=== PATIENT | female | born 1965 | race Caucasian/White ===

== ENCOUNTER 2025-01-07 14:15 | Emergency (ER) | payer MEDICARE, SELFPAY ==
--- OUTSIDE RECORDS SUMMARY | 2011-03-24 07:00 | XMS_ITS | Continuity of Care Document ---
Author Organization [facility] Phys[facility] Address [address] [place] [address] Phone Care Team Providers Care Credit Risk Analyst Name Role Phone Hermelindo BRIDGES, Horace Unavailable Unavailable Procedures Procedure Date OFFICE/OUTPATIENT VISIT, NEW Advance Directives Directive Yes / No Effective Date File Name No Information Encounters Encounter Description Practice Location Reason(s) For Visit Diagnoses Date Provider Providers Copied on Encounter OFFICE/OUTPATI ENT VISIT, NEW [facility] , [address] [place], [address], [place] tel:[phone] [facility] PAIN IN OR AROUND EYEHEADACHE Hermelindo Vu. [address] [place] [address], [facility] [address], [place], [place], [id number], . tel:[phone] Referring Provider: Horace Singletary, [address] [place] [address] [address], [place], [address]. tel:[phone] Family History Family Member Type Diagnosis Age At Onset No Information Payers Payer name Insurance type Covered green party ID Authoriza tion(s) No Information Social History Type Description Quantity Date Captured Comments Sex Female Smoking Status No Information Chief Complaint And Reason For Visit No Information Reason For Referral Reason For Referral No Information History Of Present Illness Encounter Date Complaint History Of Prese nt Illness No Information Functional Status Date Functional Assessmen t No Information Instructions Date Instruction Additional Infor mation No Information Assessments Type Assessment Date No Information Patient Care Teams Name Effective Dates (start - stop) Status Members No Information
--- OUTSIDE RECORDS SUMMARY | 2024-11-29 11:30 | XMS_ITS | Encounter Summary ---
Author Organization [place] [address] Care Team Providers Care Automotive Design Drafter Name Role Phone Elie Warren MD [facility] Eileen Lee MD Primary Care Provider [phone] Reason for Visit * Reason Comments URI Encounter Details Date Type Department Care Team (Late st Contact Info) Description 11/29/2024 11:30 AM EDT Office Visit [facility] [address] [place] [facility] [place] [address] Eileen Quevedo MD [address] [place] [address] Acute bronchitis, unspecified organism (Primary Dx) Social History Tobacco Use Types Packs/Day Years Used Date Smoking Tobacco: Former Cigarettes 1 43.5 S tarted: 1982 Smokeless Tobacco: Never Tobacco Cessation:Counseling Given: Not Answered Alcohol Use Standard Drinks/Week Comments No 0 (1 standard drink = 0.6 oz pur e alcohol) PHQ-2 Answer Date Recorded PHQ-2 Total Score 0 09/29/2024 Comments No Sex and Gender Information Value Date Recorded Sex Assigned at Not on file Legal Sex Female 6:08 AM EDT Gender Identity Not on file Sexual Orientation Not on file documented as of this encounter Last Filed Vital Signs Vital Sign Reading Time Taken Comments Blood Pressure 118/68 11/29/2024 11:23 AM EDT Pulse 68 11/29/2024 11:23 AM EDT Temperature - - Respiratory Rate - - Oxygen Saturation 96% 11/29/2024 11:23 AM EDT Inhaled Oxygen Concentration - - Weight 62.1 kg (137 lb) 11/29/2024 11:23 AM EDT Height 162.6 cm (5' 4 ) 11/29/2024 11:23 AM EDT Body Mass Index 23.52 11/29/2024 11:23 AM EDT documented in this encounter Functional Status * Is the person deaf or does he/she have serious difficulty hearing? Answer Date of Assessment Author No 09/29/2024 1:53 PM EDT Nan Levy RMA * Is the person blind or does he/she have serious difficulty seeing even when wearing glasses? Answer Date of Assessment Author No 09/29/2024 1:53 PM EDT Nan Levy RMA * Does this person have serious difficulty walking or climbing stairs? Answer Date of Assessment Author No 09/29/2024 1:53 PM EDT Nan Levy RMA * Does this person have difficulty dressing or bathing? Answer Date of Assessment Author No 09/29/2024 1:53 PM EDT Nan Levy RMA * Because of a physical, mental or emotional condition, does this person have difficulty doing errands alone such as visiting a doctor's office or shopping? Answer Date of Assessment Author No 09/29/2024 1:53 PM EDT Nan Levy RMA documented as of this encounter Mental Status * Because of a physical, mental or emotional condition, does this person have serious difficulty concentrating, remembering or making decisions? Answer Entry Date Author No 09/29/2024 1:53 PM EDT Nan Levy RMA documented in this encounter Ordered Prescriptions Prescription Sig Dispense Quantity Refills Last Filled Start Date End Date benzonatate (TESSALON) 200 mg Oral CapsuleIndication s:Acute bronchitis, unspecified organism Take 1 Capsule by mouth 3 times daily as needed for Cough for up to 10 days. 30 Capsule 11/29/2024 5 methylPREDNISolon e (MEDROL DOSPACK) 4 mg Oral Tablets, Dose PackIndications:A cute bronchitis, unspecified organism See package instructions 21 Tablet 11/29/2024 5 documented in this encounter Progress Notes * Eileen Quevedo MD - 11/29/2024 11:30 AM EDT Vitals: 11/29/24 1123 BP: 118/68 Pulse: 68 SpO2: 96% Weight: 137 lb (62.1 kg) Height: 5' 4 (1.626 m) Body mass index is 23.52 kg/m??. SUBJECTIVE: Chief Complaint Patient presents with URI HPI: URI/Sinus symptoms: complains of sore throat, dry cough, productive cough, and myalgias for 4 days. Associated symptoms include fatigue. Symptom severity is described as Moderate and are worsening. What treatments have you tried at home? Nyquil flu and cold Are home treatments impacting your symptoms at all? Very little. Do you get recurrent or seasonal symptoms multiple times per year? no Do you have any history of lung disease, asthma, or recurrent allergies? no The Patient does not smoke cigarettes. PT's daughter was sixk and diagnosed with bronchitis. Her also diagnosed with bronchitis. Review of Systems Constitutional: Positive for fatigue. Negative for fever. HENT: Negative for congestion, rhinorrhea and sinus pressure. Respiratory: Positive for cough and chest tightness. Negative for shortness of breath. Cardiovascular: Negative for chest pain. Gastrointestinal: Negative for abdominal pain, constipation, diarrhea, nausea and vomiting. Endocrine: Negative for polydipsia, polyphagia and polyuria. Genitourinary: Negative for dysuria. Musculoskeletal: Positive for myalgias. Negative for back pain. Skin: Negative for rash. Neurological: Negative for seizures and headaches. Psychiatric/Behavioral: Negative for sleep disturbance. OBJECTIVE: Physical Exam Constitutional: General: She is not in acute distress. Appearance: She is well-developed. HENT: Head: Normocephalic and atraumatic. Right Ear: Tympanic membrane normal. Left Ear: Tympanic membrane normal. Mouth/Throat: Pharynx: No oropharyngeal exudate or posterior oropharyngeal erythema. Eyes: Conjunctiva/sclera: Conjunctivae normal. Pupils: Pupils are equal, round, and reactive to light. Cardiovascular: Rate and Rhythm: Normal rate and regular rhythm. Heart sounds: Normal heart sounds. No murmur heard. Pulmonary: Effort: Pulmonary effort is normal. Breath sounds: Normal breath sounds. No wheezing. Musculoskeletal: General: Normal range of motion. Cervical back: Normal range of motion. Skin: General: Skin is warm and dry. Findings: No rash. Neurological: Mental Status: She is alert. Cranial Nerves: No cranial nerve deficit. Psychiatric: Behavior: Behavior normal. Assessment & Plan Acute bronchitis, unspecified organism Orders: methylPREDNISolone (MEDROL DOSPACK) 4 mg Oral Tablets, Dose Pack; See package instructions benzonatate (TESSALON) 200 mg Oral Capsule; Take 1 Capsule by mouth 3 times daily as needed for Cough for up to 10 days. documented in this encounter Miscellaneous Notes * Addendum Note - Nan Levy RMA - 11/29/2024 11:30 AM EDTAddended by: NAN LEVY on: 11/29/2024 01:28 PM Modules accepted: Orders documented in this encounter Plan of Treatment Not on file documented as of this encounter Goals Goal Patient Goal Type Associated Problems Recent Progress Patient-Stated? Author Maintain a healthy diet, exercise regularly and maintain an ideal body weight General No Nan Levy RMA Stay Tobacco Free Lifestyle No Nan Levy RMA documented as of this encounter Procedures Procedure Name Priority Date/Time Associated Diagnosis Comments POCT CEPHEID SARS COV-2 RNA + FLU A/B + RSV Routine 11/29/2024 1:27 PM EDT Acute bronchitis, unspecified organism documented in this encounter Results * POCT CEPHEID SARS COV-2 RNA + FLU A/B + RSV (11/29/2024 1:27 PM EDT) SARS COV-2 RNA Negative Negative, Invalid [facility] INFLUENZA A Negative Negative, Invalid SEP OFFICE INFLUENZA B Negative Negative, Invalid SEP OFFICE RSV Negative Negative, Invalid SEP OFFICE Lot Number SEP OFFICE Expiration Date SEP OFFICE SeriAl # SEP OFFICE Control Line Yes YES/NO SEP [facility]ICE 11/29/2024 1:27 PM EDT us Eileen Quevedo MD POINT OF CARE TEST ORDERABLES Final Result [facility] documented in this encounter Visit Diagnoses Diagnosis Acute bronchitis, unspecified organism- Primary documented in this encounter Care Teams Automotive Design Drafter Relationship Specialty Start Date End Date Eileen Quevedo MD [address] [place] [address] PCP - General Family Medicine 09/02/18 Elie Warren MD 10/17/16 documented as of this encounter
--- OUTSIDE RECORDS SUMMARY | 2024-12-08 09:15 | XMS_ITS | Encounter Summary ---
Author Organization [place] [address] Care Team Providers Care Resource Development Manager Name Role Phone Elie Warren MD, Ashley N MD Primary Care Provider [phone] Reason for Visit * Reason Comments Cough Encounter Details Date Type Department Care Team (Late st Contact Info) Description 12/08/2024 9:15 AM EDT Office Visit [facility] [address] [place] [address] Eugenia Raygozaah Katerina, IP ATTORNEY [address] [place] [address] Chest pain at rest (Primary Dx); Acute cough Social History Tobacco Use Types Packs/Day Years Used Date Smoking Tobacco: Former Cigarettes 1 43.5 S tarted: 1982 Smokeless Tobacco: Never Alcohol Use Standard Drinks/Week Comments No 0 [...] Sign Reading Time Taken Comments Blood Pressure 112/70 12/08/2024 9:13 AM EDT Pulse 70 12/08/2024 9:13 AM EDT Temperature 36.8 C (98.2 F) 12/08/2024 9:13 AM EDT Respiratory Rate - - Oxygen Saturation 98% 12/08/2024 9:13 AM EDT Inhaled Oxygen Concentration - - Weight 61.7 kg (136 lb) 12/08/2024 9:13 AM EDT Height 162.6 cm (5' 4 ) 12/08/2024 9:13 AM EDT Body Mass Index 23.34 12/08/2024 9:13 AM EDT documented in this encounter Functional Status * Is the person deaf or does he/she have serious difficulty hearing? Answer Date of Assessment Author No 09/29/2024 1:53 PM EDT Adelaida Clark RMA * Is the person blind or does he/she have serious difficulty seeing even when wearing glasses? Answer Date of Assessment Author No 09/29/2024 1:53 PM EDT Adelaida Clark RMA * Does this person have serious difficulty walking or climbing stairs? Answer Date of Assessment Author No 09/29/2024 1:53 PM EDT Adelaida Clark RMA * Does this person have difficulty dressing or bathing? Answer Date of Assessment Author No 09/29/2024 1:53 PM EDT Adelaida Clark RMA * Because of a physical, mental or emotional condition, does this person have difficulty doing errands alone such as visiting a doctor's office or shopping? Answer Date of Assessment Author No 09/29/2024 1:53 PM EDT Adelaida Clark RMA documented as of this encounter Mental Status * Because of a physical, mental or emotional condition, does this person have serious difficulty concentrating, remembering or making decisions? Answer Entry Date Author No 09/29/2024 1:53 PM EDT Adelaida Clark RMA documented in this encounter Ordered Prescriptions Prescription Sig Dispense Quantity Refills Last Filled Start Date End Date albuterol (PROVENTIL HFA;VENTOLIN HFA) 90 mcg/actuation Inhl HFA Aerosol Inhaler Inhale 2 Puffs into the lungs every 4 hours as needed for Wheezing. 1 Each 2 12/08/2024 documented in this encounter Progress Notes * Jazmine Raygoza APRN - 12/08/2024 9:15 AM EDT Vitals: 12/08/24 0913 BP: 112/70 Pulse: 70 Temp: 98.2 ??F (36.8 ??C) TempSrc: Temporal SpO2: 98% Weight: 136 lb (61.7 kg) Height: 5' 4 (1.626 m) Body mass index is 23.34 kg/m??. SUBJECTIVE: Chief Complaint Patient presents with ??? Cough HPI: Pt c/o cough, SOB, chest pressure x 2 weeks was seen last week and was prescribed a steroid pack with no improvement. Does not use an inhaler. Review of Systems Constitutional: Negative for fever. HENT: Positive for rhinorrhea. Negative for sinus pressure and sinus pain. Respiratory: Positive for cough, chest tightness and shortness of breath. Cardiovascular: Negative for chest pain. OBJECTIVE: Physical Exam Vitals and nursing note reviewed. Constitutional: Appearance: Normal appearance. HENT: Mouth/Throat: Mouth: Mucous membranes are moist. Pharynx: Oropharynx is clear. Cardiovascular: Rate and Rhythm: Normal rate and regular rhythm. Pulses: Normal pulses. Heart sounds: Normal heart sounds. Pulmonary: Effort: Pulmonary effort is normal. Breath sounds: Normal breath sounds. Skin: General: Skin is warm and dry. Neurological: General: No focal deficit present. Mental Status: She is alert. Assessment & Plan Chest pain at rest Orders: ??? POCT EKG ??? XR CHEST PA AND LATERAL; Future Acute cough Orders: ??? XR CHEST PA AND LATERAL; Future Phicq-yg-kujl EKG and chest x-ray reviewed this visit no abnormality seen in EKG, no ST elevation or depression noted. Chest x-ray was clear of pneumonia. Patient will start allergy medicine and inhaler as needed for wheezing and chest tightness. Luak-jgb-axymyrg Flonase as directed. Will follow-up as needed documented in this encounter Plan of Treatment Not on file documented as of this encounter Goals Goal Patient Goal Type Associated Problems Recent Progress Patient-Stated? Author Maintain a healthy diet, exercise regularly and maintain an ideal body weight General No Adelaida Clark RMA Stay Tobacco Free Lifestyle No [place], Adelaida De Guzman, RMA documented as of this encounter Procedures Procedure Name Priority Date/Time Associated Diagnosis Comments POCT EKG Routine 12/08/2024 9:32 AM EDT Chest pain at rest documented in this encounter Results * XR CHEST PA AND LATERAL (12/08/2024 9:53 AM EDT) Anatomical Region Laterality Modality Chest Radiographic Cortney ging 12/08/2024 9:53 AM EDT Impressions 12/08/2024 10:05 AM EDT No acute intrathoracic process. - Note: Radiology results need to be interpreted within a comprehensive clinical context. If you have questions about the radiology report, please contact the office of the ordering clinician. Narrative 12/08/2024 10:05 AM EDT PA AND LATERAL CHEST X-RAY, 12/08/2024 9:53 AM CLINICAL HISTORY: R07.9-Chest pain, [id number]-25-CM R05.1-Acute nsoon-CIF-43-CM COMPARISON: 02/12/2023. PROCEDURE COMMENTS: Frontal and lateral views of the chest. FINDINGS: Stable radiographic appearance of the heart and pulmonary vascular structures. The lungs are clear. No pleural effusions Procedure Note Te Painting DO - 12/08/2024 PA AND LATERAL CHEST X-RAY, 12/08/2024 9:53 AM CLINICAL HISTORY: R07.9-Chest pain, [id number]-ZCB-45-CM R05.1-Acute ekhnm-MSR-97-CM COMPARISON: 02/12/2023. PROCEDURE COMMENTS: Frontal and lateral views of the chest. FINDINGS: Stable radiographic appearance of the heart and pulmonary vascularstructures. The lungs are clear. No pleural effusions IMPRESSION: No acute intrathoracic process. - Note: Radiology results need to be interpreted within a comprehensiveclinical context. If you have questions about the radiology report, please contactthe office of the ordering clinician. Jazmine Raygoza APRN IMG DIAGNOSTIC IMAGING O RDERABLES Final Result * POCT EKG (12/08/2024 9:32 AM EDT) 12/08/2024 9:32 AM EDT Jazmine Bogres Raygoza IP ATTORNEY POINT OF CARE CARDIOLOGY Final Result [facility] documented in this encounter Visit Diagnoses Diagnosis Chest pain at rest- Primary Chest pain, unspecified Acute cough Chest pain at rest Chest pain, unspecified Acute cough documented in this encounter Discontinued Medications Medication Sig Discontinue Reason Start Date End Da te methylPREDNISolone (MEDROL DOSPACK) 4 mg Oral Tablets, Dose PackIndications:Acute bronchitis, unspecified organism See package instructions DELETE-Therapy completed 11/29/2024 12/08/2024 documented as of this encounter Care Teams Resource Development Manager Relationship Specialty Start Date End Date Eileen Quevedo MD [address] [place] [address] PCP - General Family Medicine 09/02/18 Elie Warren MD 10/17/16 documented as of this encounter
--- OUTSIDE RECORDS SUMMARY | 2024-12-08 09:49 | XMS_ITS | Encounter Summary ---
Author Organization [place] [address] Care Team Providers Care Clinical Lab Assistant Name Role Phone Elie Warren MD, Ashley N MD Primary Care Provider [phone] Encounter Details Date Type Department Care Team (Late st Contact Info) Description 12/08/2024 9:49 AM EDT - 12/08/2024 11:59 PM EDT Hospital Encounter [facility] [address] [place] [address] Jazmine Raygoza, HOT DIP GALVANIZER [address] [place] [address] Chest pain at rest; Acute cough Discharge Disposition: Home or Self Care Social History Tobacco Use Types Packs/Day Years [...] on file documented as of this encounter Functional Status * Is the person deaf or does he/she have serious difficulty hearing? Answer Date of Assessment Author No 09/29/2024 1:53 PM EDT Adelaida Clark RMA * Is the person blind or does he/she have serious difficulty seeing even when wearing glasses? Answer Date of Assessment Author No 09/29/2024 1:53 PM EDT Amber TANVI Ferguson * Does this person have serious difficulty [...] Adelaida Clark RMA documented in this encounter Medications at Time of Discharge albuterol (PROVENTIL HFA;VENTOLIN HFA) 90 mcg/actuation Inhl HFA Aerosol Inhaler Inhale 2 Puffs into the lungs every 4 hours as needed for Wheezing. 1 Each 2 12/08/2024 buPROPion (WELLBUTRIN SR) 150 mg Oral tablet sustained-release 12 hrIndications:Cigare tte smoker TAKE 1 TABLET BY MOUTH TWICE A DAY 200 Tablet 1 11/22/2024 busPIRone (BUSPAR) 7.5 mg Oral TabletIndications:Ot her depression Take 2 Tablets by mouth 2 times daily. 120 Tablet 11 09/29/2024 cyclobenzaprine (FLEXERIL) 10 mg Oral TabletIndications:Oc cipital neuralgia of right side Take 1 Tablet by mouth every 8 hours as needed. for muscle spasm 90 Tablet 07/03/2023 cyclobenzaprine (FLEXERIL) 10 mg Oral Tablet TAKE 1 TABLET 3 TIMES A DAY BY ORAL ROUTE FOR 30 DAYS. 11/26/2022 DULoxetine (CYMBALTA) 60 mg Oral Capsule, Delayed Release(E.C.)Indicat ions:Other depression Take 1 Capsule by mouth daily. 100 Capsule 1 09/29/2024 metoprolol succinate (TOPROL-XL) 25 mg Oral Tablet Sustained Release 24 hrIndications:Essent ial hypertension TAKE 1 TABLET BY MOUTH EVERY DAY 90 Tablet 1 05/10/2024 oxyCODONE 10 mg Oral Tablet Take 10 mg by mouth every 4 hours. oxyCODONE-acetaminop hen (PERCOCET) 10-325 mg Oral TabletIndications:Ch ronic pain with drug dependence (HCC) Take 1 Tablet by mouth every 6 hours as needed for Acute Pain (R52) or Chronic Pain (G89.29). 90 Tablet 07/02/2021 rosuvastatin (CRESTOR) 10 mg Oral TabletIndications:Hy perlipidemia, unspecified hyperlipidemia type Take 1 Tablet by mouth nightly. 90 Tablet 3 09/29/2024 sertraline (ZOLOFT) 100 mg Oral TabletIndications:Ot her depression Take 1 Tablet by mouth daily. 90 Tablet 3 09/29/2024 traZODone (DESYREL) 50 mg Oral TabletIndications:In somnia, persistent Take 1 Tablet by mouth nightly. 30 Tablet 2 09/29/2024 benzonatate (TESSALON) 200 mg Oral CapsuleIndications:A cute bronchitis, unspecified organism Take 1 Capsule by mouth 3 times daily as needed for Cough for up to 10 days. 30 Capsule 11/29/2024 5 documented as of this encounter Discharge Disposition Disposition Code Departure Means Destination Home or Self Care documented in this encounter Plan of Treatment Not on file documented as of this encounter Goals Goal Patient Goal Type Associated Problems Recent Progress Patient-Stated? Author Maintain a healthy diet, exercise regularly and maintain an ideal body weight General Adelaida Hurd RMA Stay Tobacco Free Lifestyle Adelaida Hurd RMA documented as of this encounter Procedures Procedure Name Priority Date/Time Associated Diagnosis Comments XR CHEST PA AND LATERAL Routine 12/08/2024 9:53 AM EDT Chest pain at rest Acute cough documented in this encounter Results * XR [...] 12/08/2024 9:53 AM CLINICAL HISTORY: R07.9-Chest pain, [id number]-36-CM R05.1-Acute soxeu-TJO-31-CM COMPARISON: 02/12/2023. PROCEDURE COMMENTS: Frontal and lateral views of the chest. FINDINGS: Stable radiographic appearance of the heart and pulmonary vascular structures. The lungs are clear. No pleural effusions Procedure Note Te Painting, - 12/08/2024 PA AND LATERAL CHEST X-RAY, 12/08/2024 9:53 AM CLINICAL HISTORY: R07.9-Chest pain, [id number]-LOY-06-CM R05.1-Acute ogxqi-FUL-27-CM COMPARISON: 02/12/2023. PROCEDURE COMMENTS: Frontal and lateral [...] IMG DIAGNOSTIC IMAGING O RDERABLES Final Result documented in this encounter Visit Diagnoses Diagnosis Chest pain at rest Chest pain, unspecified Acute cough documented in this encounter Care Teams Clinical Lab Assistant Relationship Specialty Start Date End Date Eileen Quevedo MD [address] [place] [address] [facility] PCP - General Family Medicine 09/02/18 Elie Warren MD 10/17/16 documented as of this encounter
[2025-01-07 14:24] VITALS: BP 126/68; PULSE 75; RESP 18; TEMP 36.6; O2SAT 99; BMI 23.6
[2025-01-07 14:28] VITALS: BP 126/68; PULSE 75; RESP 18; TEMP 36.4; O2SAT 98
--- NOTE | 2025-01-07 14:28 | XR_ITS ---
PROCEDURE INFORMATION: Exam: XR Left Hand Exam date and time: 01/07/2025 2:24 PM Age: 59 years old Clinical indication: Pain; Hand; Left; Additional info: Injury to pinky/side hand TECHNIQUE: Imaging protocol: Radiologic exam of the left hand. Views: 1 or 2 views. COMPARISON: No relevant prior studies available. FINDINGS: Bones/joints: Acute nondisplaced Spiral oblique fracture in the proximal phalanx of the little finger. Soft tissues: Soft tissue swelling of the little finger IMPRESSION: Acute nondisplaced Spiral oblique fracture in the proximal phalanx of the little finger.
--- OUTSIDE RECORDS SUMMARY | 2025-01-07 14:38 | XMS_ITS | Clinical Summary ---
Author Organization [facility] Address [address] [id number] Phone Care Team Providers Care Strategic Sourcing Specialist Name Role Phone Tyler ZULETA, Rick Sevilla [phone] Conditions or Problems Problem Name Problem Code Onset Date Status Entry Date Provider Comment Standard Description Annotate CERVICAL RADICULOPATHY 64995787 (SNOMED CT) 08/08 Active 08/08 Kajal Wharton MA Cervical radiculopathy THORACIC BACK PAIN [id number] (SNOMED CT) 08/08 Active 08/08 Kajal Wharton MA Thoracic back pain NECK PAIN 14538178 (SNOMED CT) 08/08 Active 08/08 Kajal Wharton MA Neck pain Medications Medication Instructions Start Date Stop Date Generic Name [facility] Provider CYCLOBENZAPRINE HCL 10 MG TABS Take 1 tablet by mouth three times a day for pain for pain and spasms cyclobenzaprine [id number] Rick Scott NP BUPROPION HCL ER (SMOKING DET) 150 MG [id number] 02/10 bupropion hcl (smoking deter) [id number] Martha Leung KATYA METOPROLOL SUCCINATE ER 25 MG [id number] 02/10 metoprolol succinate [id number] Martha Dodds KATYA BUSPIRONE HCL 7.5 MG TABS 02/10 buspirone [id number] Martha Leung KATYA OXYCODONE HCL 10 MG TABS 02/10 oxycodone [id number] Martha Leung KATYA PREGABALIN 50 MG CAPS 02/10 pregabalin [id number] Mrathabrittany Leung KATYA ROSUVASTATIN CALCIUM 10 MG TABS rosuvastatin 58774800113 Dain Leung MA DULOXETINE HCL 60 MG CPEP duloxetine 09362819613 Martha Leung MA BUSPIRONE HCL 7.5 MG TABS buspirone 79242300124 Martha Leung MA TRAZODONE HCL 50 MG TABS trazodone 08532031990 Martha Leung MA METOPROLOL SUCCINATE ER 25 MG [id number] metoprolol succinate [id number] Martha Leung MA OXYCODONE-ACETAMIN OPHEN 10-325 MG TABS oxycodone-acetam i nophen 48643019490 Martha Leung MA SERTRALINE HCL 100 MG TABS sertraline [id number] Martha Leung MA BUPROPION HCL ER (SR) 150 MG [id number] bupropion hcl 67964564080 Martha Leung MA BUPROPION HCL ER (SMOKING DET) 150 MG [id number] 02/10 bupropion hcl (smoking deter) [id number] Kajal Wharton KATYA BUSPIRONE HCL 7.5 MG TABS 02/10 buspirone 48573060833 Kajal Wharton MA METOPROLOL SUCCINATE ER 25 MG [id number] 02/10 metoprolol succinate 78452866594 Kajal Wharton MA OXYCODONE HCL 10 MG TABS 02/10 oxycodone 09934149961 Kajal Wharton MA PREGABALIN 50 MG CAPS 02/10 pregabalin [id number] Kajal Wharton MA Medications Administered No information available. Allergies, Adverse Reactions, Alerts Observed No Known Drug Allergies at Results No information available. Plan of Care Type Date Detail Pending order PT Order Pending order MRI Cervical wit hout Contrast Pending order MRI Thoracic wit hout Contrast Pending order MRI Cervical wit hout Contrast Pending order MRI Thoracic wit hout Contrast Pending order PT Order Procedures Code Procedure Name Date Entry Date [facility]-[id number] Tobacco Cessation Counseling Performed 2 Vital Signs Date Name Value Unit Description BMI (Body Mass Index) 22.31 kg/m2 Bod y Mass Index (Ratio) Height 64 [in_us] height E&M Weight Measured 130 [lb_av] weight E& M Weight Measured 130 [lb_av] weight E& M Immunizations No information available. Advance Directives No information available.
--- OUTSIDE RECORDS SUMMARY | 2025-01-07 14:39 | XMS_ITS | Clinical Summary ---
Author Organization [facility] Address [address] [place] [address] Care Team Providers Care Brace Maker Name Role Phone Real Baltazar MD Primary Care Provider [phone] Allergies No known active allergies Medications traZODone (DESYREL) 50 MG TABS Take 50 mg by mouth nightly. 4 Active sertraline (ZOLOFT) 100 MG TABS Take 100 mg by mouth daily. 4 Active rosuvastatin (CRESTOR) 10 MG TABS Take 10 mg by mouth nightly. 4 Active oxyCODONE HCl (ROXICODONE) 10 MG TABS Take 10 mg by mouth every 4 (four) hours. Active metoprolol succinate (TOPROL-XL) 25 mg extended-releas e tablet Take 25 mg by mouth daily. 4 Active DULoxetine (CYMBALTA) 60 MG CPEP Take 60 mg by mouth daily. 4 Active busPIRone (BUSPAR) 7.5 mg tablet Take 15 mg by mouth 2 (two) times daily. 4 Active buPROPion ER (WELLBUTRIN SR) 150 MG TB12 Take 150 mg by mouth 2 (two) times daily. 4 Active Unclassified (UNABLE TO FIND) daily. NAD supplement Active oxyCODONE-aceta minophen (PERCOCET) 10-325 mg TABS Take 1 tablet every 8 hours by oral route for 30 days. 5 Active Social History Tobacco Use Types Packs/Day Years Used Date Smoking Tobacco: Former Cigarettes Q uit: 06/11/2024 Smokeless Tobacco: Never Tobacco Cessation:Counseling Given: Not Answered Alcohol Use Standard Drinks/Week Comments Not Currently 0 (1 standard drink = 0.6 oz pur e alcohol) very rare Comments No Sex and Gender Information Value Date Recorded Sex Assigned at Not on file Legal Sex Female 11:56 AM EDT Gender Identity Female 08/05/2024 2:25 PM EST Sexual Orientation Not on file Last Filed Vital Signs Vital Sign Reading Time Taken Comments Blood Pressure 115/61 08/12/2024 1:50 PM EST Pulse 78 08/12/2024 1:50 PM EST Temperature 36.9 C (98.5 F) 08/12/2024 1:50 PM EST Respiratory Rate 18 08/12/2024 1:50 PM EST Oxygen Saturation 94% 08/12/2024 1:50 PM EST Inhaled Oxygen Concentration - - Weight 59 kg (130 lb) 08/12/2024 9:18 AM EST Height 162.6 cm (5' 4 ) 08/05/2024 2:08 PM EST Body Mass Index 22.31 08/05/2024 2:08 PM EST Plan of Treatment Health Maintenance Due Date Last Done Comments Hepatitis C Screening 1964 DTap,Tdap,and Td (1 - Tdap) 1975 Pap Screening 1985 Mammogram Screening 2004 Colonoscopy 2009 Pneumococcal 50+ (1 of 1 - PCV) 2014 Shingrix (#1) 2014 Influenza Vaccine (Season Ended) 2025 RSV Vaccine (60+ or ) (1 - 1-dose 75+ series) 2039 HPV Aged Out No longer eligi ble based on patient's age to complete this topic Meningococcal conjugate carlota nt 4 (MCV4) Aged Out No longer eligible b ased on patient's age to complete this topic RSV Immunization (<20 months) Aged Out No longer eligible based on patient's age to complete this topic Medical Devices Implanted Type Area Abattoir Manager Device Identifier Shelf Expiration Date Model / Serial / Lot Breast Bilateral: Breast Screws Left: Leg Breast Implant Implanted:Qty: 1 on 08/12/2024 by Real Baltazar MD at [facility] Left: Breast ALLERGAN 01/16/2027 REF# [id number] / [id number] / Description: brought impla nt Breast Implant Implanted:Qty: 1 on 08/12/2024 by Real Baltazar MD at [facility] Right: Breast ALLERGAN 05/17/2027 [id number] / [id number] / Description: brought impla nt Explanted Type Area Abattoir Manager Device Identifier Shelf Expiration Date Model / Serial / Lot Breast Explant Explanted:Qty: 1 on 08/12/2024 at [facility] Left: Breast [employer] STYLE 68MP / / [id number] Breast Explant Explanted:Qty: 1 on 08/12/2024 at [facility] Right: Breast [employer] STYLE 68MP / / [id number] Care Teams Brace Maker Relationship Specialty Start Date End Date Real Baltazar MD PCP - General Plastic Surgery 08/08/24
--- OUTSIDE RECORDS SUMMARY | 2025-01-07 14:39 | XMS_ITS | Encounter Summary ---
Author Organization [place] [address] Care Team Providers Care Car Pusher Name Role Phone Elie Warren MD [facility] Eileen Lee MD Primary Care Provider [phone] Reason for Visit * Reason Comments Medication Refill Encounter Details Date Type Department Care Team (Late st Contact Info) Description 11/20/2024 [facility]ill [facility] [address] [facility] [place] [id number] Eileen Quevedo MD [address] [place] [address] Medication Refill Social History Tobacco Use Types Packs/Day Years [...] Assessment Author No 09/29/2024 1:53 PM EDT WeAdelaida jean RMA * Does this person have serious difficulty walking or climbing stairs? Answer Date of Assessment Author No 09/29/2024 1:53 PM EDT Amber TANVI Ferguson * Does this person have difficulty dressing or bathing? Answer Date of Assessment Author No 09/29/2024 1:53 PM EDT Amber TANVI Ferguson * Because of a physical, mental or emotional condition, does this person have difficulty doing errands alone such as visiting a doctor's office or shopping? Answer Date of Assessment Author No 09/29/2024 1:53 PM EDT Amber TANVI Ferguson documented as of this encounter Mental Status * Because of a physical, mental or emotional condition, does this person have serious difficulty concentrating, remembering or making decisions? Answer Entry Date Author No 09/29/2024 1:53 PM EDT Adelaida Clark RMA documented in this encounter Ordered Prescriptions Prescription Sig Dispense Quantity Refills Last Filled Start Date End Date buPROPion (WELLBUTRIN SR) 150 mg Oral tablet sustained-release 12 hrIndications:Cigar ette smoker TAKE 1 TABLET BY MOUTH TWICE A DAY 200 Tablet 1 11/22/2024 documented in this encounter Miscellaneous Notes * Telephone Encounter - Marlena Metzger CPhT - 11/22/2024 11:51 AM EDT Bupropion - Future Visit: N/A Last Assessed Visit: 09/29/24 Follow-Up Date: 04/01/25 All protocols passed. Refills approved and sent to requesting pharmacy. [facility]. documented in this encounter Plan of Treatment Not on file documented as of this encounter Goals Goal Patient Goal Type Associated Problems Recent Progress Patient-Stated? Author Maintain a healthy diet, exercise regularly and maintain an ideal body weight General No Adelaida Clark RMA Stay Tobacco Free Lifestyle No Adelaida Clark RMA documented as of this encounter Visit Diagnoses Diagnosis Cigarette smoker Tobacco use disorder documented in this encounter Discontinued Medications Medication Sig Discontinue Reason Start Date End Da te buPROPion (WELLBUTRIN SR) 150 mg Oral tablet sustained-release 12 hrIndications:Cigarette smoker Take 1 Tablet by mouth 2 times daily. 09/29/2024 11/22/2024 documented as of this encounter Care Teams Car Pusher Relationship Specialty Start Date End Date Eileen Quevedo MD [address] [place] [address] PCP - General Family Medicine 09/02/18 Elie Warren MD 10/17/16 documented as of this encounter
--- OUTSIDE RECORDS SUMMARY | 2025-01-07 14:39 | XMS_ITS | Clinical Summary ---
Author Organization [facility] Address [address] [place] [address] Phone Care Team Providers Care Seafood Clerk Name Role Phone Elie Warren MD [facility] [place] Eileen Rey MD Primary Care Provider [phone] Allergies No known active allergies Medications * This document contains information received from the source organization and may not represent a complete record from that organization. oxyCODONE 10 mg Oral Tablet Take 10 mg by mouth every 4 hours. Active oxyCODONE-acetamino phen (PERCOCET) 10-325 mg Oral TabletIndications:C hronic pain with drug dependence (HCC) Take 1 Tablet by mouth every 6 hours as needed for Acute Pain (R52) or Chronic Pain (G89.29). 90 Tablet 1 Active cyclobenzaprine (FLEXERIL) 10 mg Oral Tablet TAKE 1 TABLET 3 TIMES A DAY BY ORAL ROUTE FOR 30 DAYS. 3 Active cyclobenzaprine (FLEXERIL) 10 mg Oral TabletIndications:O ccipital neuralgia of right side Take 1 Tablet by mouth every 8 hours as needed. for muscle spasm 90 Tablet 3 Active metoprolol succinate (TOPROL-XL) 25 mg Oral Tablet Sustained Release 24 hrIndications:Essen tial hypertension TAKE 1 TABLET BY MOUTH EVERY DAY 90 Tablet 1 4 Active rosuvastatin (CRESTOR) 10 mg Oral TabletIndications:H yperlipidemia, unspecified hyperlipidemia type Take 1 Tablet by mouth nightly. 90 Tablet 3 5 Active sertraline (ZOLOFT) 100 mg Oral TabletIndications:O ther depression Take 1 Tablet by mouth daily. 90 Tablet 3 5 Active traZODone (DESYREL) 50 mg Oral TabletIndications:I nsomnia, persistent Take 1 Tablet by mouth nightly. 30 Tablet 2 5 Active DULoxetine (CYMBALTA) 60 mg Oral Capsule, Delayed Release(E.C.)Indica tions:Other depression Take 1 Capsule by mouth daily. 100 Capsule 1 5 Active busPIRone (BUSPAR) 7.5 mg Oral TabletIndications:O ther depression Take 2 Tablets by mouth 2 times daily. 120 Tablet 11 5 Active buPROPion (WELLBUTRIN SR) 150 mg Oral tablet sustained-release 12 hrIndications:Cigar ette smoker TAKE 1 TABLET BY MOUTH TWICE A DAY 200 Tablet 1 5 Active albuterol (PROVENTIL HFA;VENTOLIN HFA) 90 mcg/actuation Inhl HFA Aerosol Inhaler Inhale 2 Puffs into the lungs every 4 hours as needed for Wheezing. 1 Each 2 5 Active benzonatate (TESSALON) 200 mg Oral CapsuleIndications: Acute bronchitis, unspecified organism Take 1 Capsule by mouth 3 times daily as needed for Cough for up to 10 days. 30 Capsule 5 12/10/19 25 Active Problems Patient Care Coordination No te Formatting of this note migh t be different from the original. LINDA as expected 07/01/21 [id number] Care gap audit completed by Jazmine Hernandez RN on 09/03/2022. Problem Noted Date Diagnosed Date Screening for colon cancer 01/24/2021 Overview (01/24/2021): Added automatically from request for surgery [id number] Positive colorectal cancer screening using Colog uard test 01/24/2021 Overview (01/24/2021): Added automatically from request for surgery [id number] Depression 09/02/2018 Assessment & Plan (09/29/2024 2:30 PM EDT): Goal: achieve mental health wellness where ADLs, family, social and work relationships are optimal Depression Screen Score: PHQ-2 Total Score: 0 PHQ-9 Total Score: 0 Addressed: - Current stressors contributing to sx explored and discussed Compliance: - compliant with medications Advice: - remain compliant with follow up and medications Medication Management: - medication management decisions took place at today's visit (see orders) - responding as expected Orders: sertraline (ZOLOFT) 100 mg Oral Tablet; Take 1 Tablet by mouth daily. DULoxetine (CYMBALTA) 60 mg Oral Capsule, Delayed Release(E.C.); Take 1 Capsule by mouth daily. busPIRone (BUSPAR) 7.5 mg Oral Tablet; Take 2 Tablets by mouth 2 times daily. Insomnia, persistent 09/02/2018 Assessment & Plan (09/29/2024 2:30 PM EDT): Orders: traZODone (DESYREL) 50 mg Oral Tablet; Take 1 Tablet by mouth nightly. Encounters Date Type Department Care Team Description 12/08/2024 9:49 AM EDT - 12/08/2024 11:59 PM EDT Hospital Encounter [facility] [address] [address] Jazmine Raygoza APRN Chest pain at rest; Acute cough Discharge Disposition: Home or Self Care 12/08/2024 9:15 AM EDT Office Visit [facility] [address] [place] [phone] Jazmine Raygoza APRN Chest pain at rest (Primary Dx); Acute cough 12/08/2024 Results Follow-Up [facility] [address] [place] [phone] Jazmine Raygoza APRN XR CHEST PA AND LATERAL 11/29/2024 11:30 AM EDT Office Visit [facility] [address] [place] [phone] Eileen Quevedo MD Acute bronchitis, unspecified organism (Primary Dx) 11/20/2024 Refill [facility] [address] [place] [address] Eileen Quevedo MD Medication Refill 11/17/2024 Patient Outreach [facility] [address] [place] [address] Eileen Quevedo MD Central Patient Navigator Outreach (Mammo) 10/25/2024 10:12 AM EDT - 10/25/2024 11:59 PM EDT Hospital Encounter [facility] [address] [place] [address] Eileen Quevedo MD Mass of joint of right shoulder Discharge Disposition: Home or Self Care 10/25/2024 Results Follow-Up [facility] [address] [place] [phone] Eileen Quevedo MD US UPPER EXTREMITY NONVASCULAR LIMITED from Last 3 Months Surgical History Surgery Date Site/Laterality Comments ELBOW SURGERY bilateral BREAST SURGERY augmentation ORTHOPEDIC SURGERY broken leg ANKLE SURGERY 09/26/2012 Leg Lower/Left Open Reduction Internal Fixation Left Tibia Fracture; Surgeon: Prasanth Page MD; Location: [facility] MAIN OR; Service: Orthopedics Medical devices from this surgery are in the Medical Devices section. COLONOSCOPY 02/20/2021 N/A Colonoscopy with biopsy and polypectomy via forceps; Surgeon: Matilda Taylor MD; Location: [facility] ENDOSCOPY; Service: Endoscopy Medical History Medical History Date Comments Depression Anxiety Hyperlipidemia Family History Medical History Relation Name Comments Cancer Brother throat Heart Disease Father Cancer Maternal Grandmother recatl Cancer Mother melanoma Heart Disease Mother Breast Cancer Sister Cancer Sister Hearing Loss Neg Hx Relation Name Status Comments Brother Father Maternal Grandmother Mother Sister Social History Tobacco Use Types Packs/Day Years [...] on file Sexual Orientation Not on file Obstetrics History Last Filed Vital Signs Vital Sign Reading Time Taken Comments Blood Pressure 112/70 12/08/2024 9:13 AM EDT Pulse 70 12/08/2024 9:13 AM EDT Temperature 36.8 C (98.2 F) 12/08/2024 9:13 AM EDT Respiratory Rate 13 02/12/2023 5:53 PM EDT Oxygen Saturation 98% 12/08/2024 9:13 AM EDT Inhaled Oxygen Concentration - - Weight 61.7 kg (136 lb) 12/08/2024 9:13 AM EDT Height 162.6 cm (5' 4 ) 12/08/2024 9:13 AM EDT Body Mass Index 23.34 12/08/2024 9:13 AM EDT Plan of Treatment Health Maintenance Due Date Last Done Comments DTaP/TDaP/Td (1 - Tdap) 1983 HPV/Pap Cotest 1994 FIT 2009 Sigmoidoscopy 2009 Virtual Colonography 2009 Pneumococcal Vaccine 50+ (1 of 1 - PCV) 2014 Zoster (1 of 2) 2014 Cologuard 12/27/2023 12/26/2020, 12/26/2020 COVID-19 Vaccine ( season) 2024 Cervical Cancer Screening 03/19/2024 Pap Smear 03/19/2024 03/19/2021, 12/12, 09/09/2013, Additional history exists Breast Cancer Screening 08/21/2024 08/21/19, 12/31/2015, 09/24/2011, Additional history exists Influenza Vaccine (Season Ended) 2025 Wellness Exam Medicare 09/30/2025 09/29/2024 Colon Cancer Screening 02/20/2031 Colonoscopy 02/20/2031 02/20/2021 Hepatitis C Screening Completed 09/02/2018 Low Dose Lung Cancer Screening Discontinued 10/13/2023 Hepatitis B Vaccine Aged Out No longe r eligible based on patient's age to complete this topic Meningococcal B Vaccine Aged Out No l onger eligible based on patient's age to complete this topic Goals Goal Patient Goal Type Associated Problems Recent Progress Patient-Stated? Author Maintain a healthy diet, exercise regularly and maintain an ideal body weight General No Adelaida Clark De GuzmanTANVI stauffer Stay Tobacco Free Lifestyle No Amber Adelaida De GuzmanTANVI stauffer Medical Devices Implanted Type Area Adhesive Bonding Machine Operator Device Identifier Shelf Expiration Date Model / Serial / Lot Lt Distal Tibia Plate, 14 Hole Implanted:Qty: 1 on 09/26/2012 by Prasanth Page MD at [facility] Left: Tibia JESSICA:ORTHOPEDI CS [id number] / / Screw Cortical Self Tapping 3.5 X 24mm - [id number] Implanted:Qty: 1 on 09/26/2012 by Prasanth Page MD at [facility] Left: Tibia JESSICA:ORTHOPEDI CS [id number] / / Screw Cortical Self Tapping 3.5 X 26mm - [id number] Implanted:Qty: 1 on 09/26/2012 by Prasanth Page MD at [facility] Left: Tibia JESSICA:ORTHOPEDI CS [id number] / / Screw Locking Axsos 4.0mm L42mm - [id number] Implanted:Qty: 2 on 09/26/2012 by Prasanth Page MD at [facility] Left: Tibia JESSICA:ORTHOPEDI CS [id number] / / Screw Cancellous 4.0 X 38mm Ss - [id number] Implanted:Qty: 1 on 09/26/2012 by Prasanth Page MD at [facility] Left: Tibia JESSICA:ORTHOPEDI CS [id number] / / Procedures Procedure Name Priority Date/Time Associated Diagnosis Comments XR CHEST PA AND LATERAL Routine 12/08/2024 9:53 AM EDT Chest pain at rest Acute cough POCT EKG Routine 12/08/2024 9:32 AM EDT Chest pain at rest POCT CEPHEID SARS COV-2 RNA + FLU A/B + RSV Routine 11/29/2024 1:27 PM EDT Acute bronchitis, unspecified organism US UPPER EXTREMITY NONVASCULAR LIMITED Routine 10/25/2024 10:37 AM EDT Mass of joint of right shoulder CT LUNG CANCER SCREENING LOW DOSE Routine 10/13/2023 8:30 AM EDT Cigarette smoker MM MAMMO DIGITAL DORON SCREEN AUG BILAT Routine 08/21/2022 11:00 AM EST Screening mammogram for high-risk patient CORRECTIONAL 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 PROCEDURE COMMENTS: Frontal and lateral views of the chest. FINDINGS: Stable radiographic appearance of the heart and pulmonary vascular structures. The lungs are clear. No pleural effusions Procedure Note Te Painting DO - 12/08/2024 PA AND LATERAL CHEST X-RAY, 12/08/2024 9:53 AM CLINICAL HISTORY: R07.9-Chest pain, gxrmgijinso-ECS-81-CM R05.1-Acute cjlpq-TFD-81-CM COMPARISON: 02/12/2023. PROCEDURE COMMENTS: Frontal and lateral [...] AM EDT) 12/08/2024 9:32 AM EDT Jazmine Raygoza APRN POINT OF CARE CARDIOLOGY Final Result Performing Organization Address City/State/[facility] Co de Phone Number SEP OFFICE * POCT CEPHEID SARS COV-2 RNA + [...] YES/NO SEP OFFICE 11/29/2024 1:27 PM EDT Eileen Quevedo MD POINT OF CARE TEST ORDERABLES Final Result SEP OFFICE * US UPPER EXTREMITY NONVASCULAR LIMITED (10/25/2024 10:37 AM EDT) Anatomical Region Laterality Modality Arm Ultrasound 10/25/2024 10:3 7 AM EDT Impressions 10/25/2024 11:12 AM EDT No pathologic mass or abnormal fluid collection. - Note: Radiology results need to be interpreted within a comprehensive clinical context. If you have questions about the radiology report, please contact the office of the ordering clinician. Narrative 10/25/2024 11:12 AM EDT US UPPER EXTREMITY NONVASCULAR LIMITED, 10/25/2024 10:37 AM CLINICAL HISTORY: M25.811-Other specified joint disorders, right azhbcecd-YEF-82-CM. COMPARISON: None. PROCEDURE COMMENTS: Routine sonographic evaluation of the region of interest (anterior right shoulder) with sales representative malt liquors images sent to PACS along with twine winder notes. FINDINGS: No significant structural abnormality or altered echogenicity on the provided images. No evidence of mass, edema or organized fluid collection. Grossly normal for age. Procedure Note Reggie Navarrete MD - 10/25/2024 US UPPER EXTREMITY NONVASCULAR LIMITED, 10/25/2024 10:37 AM CLINICAL HISTORY: M25.811-Other specified joint disorders, right vjuhtwdd-RNE-56-CM. COMPARISON: None. PROCEDURE COMMENTS: Routine sonographic evaluation of the region ofinterest (anterior right shoulder) with sales representative malt liquors images sent to PACS alongwith twine winder notes. FINDINGS: No significant structural abnormality or altered echogenicity on theprovided images. No evidence of mass, edema or organized fluid collection. Grosslynormal for age. IMPRESSION: No pathologic mass or abnormal fluid collection. - Note: Radiology results need to be interpreted within a comprehensiveclinical context. If you have questions about the radiology report, please contactthe office of the ordering clinician. Eileen Quevedo MD [facility] [place] ORDERABLES Final Resul t * CT LUNG CANCER SCREENING LOW DOSE (10/13/2023 8:30 AM EDT) Anatomical Region Laterality Modality Lung Computed Tomogra phy 10/13/2023 8:30 AM EDT Impressions 10/13/2023 9:24 AM EDT Unremarkable low-dose screening chest CT. RECOMMENDATION: Low Dose CT - 1 Yr A summary letter communicating these results will be mailed to the patient's address of record. - Note: Radiology results need to be interpreted within a comprehensive clinical context. If you have questions about the radiology report, please contact the office of the ordering clinician. [email or web address] Narrative 10/13/2023 9:[address] LUNG CANCER SCREENING LOW DOSE 10/13/2023 8:30 AM CLINICAL HISTORY: Asymptomatic patient meeting NCCN high risk criteria for lung screening. F17.210-Nicotine dependence, cigarettes, sckmbqesdzhpx-OZO-30-CM. COMPARISON: None. PROCEDURE COMMENTS: Noncontrast, low-dose, multidetector CT chest per department protocol. Interactive 3-D postprocessing done by the reviewing physician on a SYNGO workstation, using Maximum intensity projections (MIPS) and SYNGO LUNG CAD for improved lesion detection. [place] images archived to PACS. Dose 1 : CT DLP Total : 46.7 mGycm DLP Spiral Max : 43.24 mGycm Maximum CTDI Vol : 1.18 mGy FINDINGS: No suspicious pulmonary nodule. No acute inflammatory process. Heart and mediastinum unremarkable. Coronary artery calcification: Mild. FOLLOW-UP CODE: Lung-RADS Category 1: Negative: No nodule or definitely benign nodule(s). Continued ANNUAL LOW-DOSE SCREENING CT SCAN (IMG [id number]) suggested if age <78. Lung-RADS Modifier N/A: No Modifier Needed Procedure Note Luis Carlos Bragg MD - 10/13/2023 CT LUNG CANCER SCREENING LOW DOSE 10/13/2023 8:30 AM CLINICAL HISTORY: Asymptomatic patient meeting NCCN high risk criteria forlung screening. F17.210-Nicotine dependence, cigarettes,yilslfiftnhyu-QLT-77-CM. COMPARISON: None. PROCEDURE COMMENTS: Noncontrast, low-dose, multidetector CT chest perdepartment protocol. Interactive 3-D postprocessing done by the reviewing physicianon a SYNGO workstation, using Maximum intensity projections (MIPS) and SYNGOLUNG CAD for improved lesion detection. [place]ente images archived to PACS. Dose 1 : CT DLP Total : 46.7 mGycm DLP Spiral Max : 43.24 mGycm Maximum CTDI Vol : 1.18 mGy FINDINGS: No suspicious pulmonary nodule. No acute inflammatory process. Heart and mediastinum unremarkable. Coronary artery calcification: Mild. FOLLOW-UP CODE: Lung-RADS Category 1: Negative: No nodule or definitelybenign nodule(s). Continued ANNUAL LOW-DOSE SCREENING CT SCAN (IM [id number])suggested if age <78. Lung-RADS Modifier N/A: No Modifier Needed IMPRESSION: Unremarkable low-dose screening chest CT. RECOMMENDATION: Low Dose CT - 1 Yr A summary letter communicating these results will be mailed to thepatient's address of record. - Note: Radiology results need to be interpreted within a comprehensiveclinical context. If you have questions about the radiology report, please contactthe office of the ordering clinician. [email or web address] Eileen Quevedo MD [facility] [place] ORDERABLES Final Resul t * MM MAMMO DIGITAL DORON SCREEN FEB BILAT (08/21/2022 11:00 AM EST) Anatomical Region Laterality Modality Breast Bilateral Mammography 08/21/2022 11:2 7 AM EST Impressions 08/21/2022 11:27 AM EST Negative (JTO-Nehmuosp-0) ~ RECOMMENDATION: Routine screening mammogram in 1 year. ~ DISCLAIMER * Any patient with a palpable abnormality, unexplained by breast imaging, should be managed on clinical basis by the attending physician. * Breast imaging has a false negative rate of 15%. * The patient was notified by mail of the results of this examination. *The patient's information was entered into a reminder system with a target due date for the next mammogram, in accordance with the [employer] and the Society of Breast Imaging recommendations. Narrative 08/21/2022 11:27 AM EST Procedure:MM MAMMO DIGITAL DORON SCREEN FEB BILAT ~ Reason for exam: history of breast augmentation, asymptomatic. Z12.31-Encounter for screening mammogram for malignant neoplasm of jjnmcw-TUY-44-CM ~ MM MAMMO DIGITAL DORON SCREEN FEB BILAT ~ Bilateral CC and MLO view(s) were taken. ~ Technologist: Jazmine Engel, The breast tissue is very dense. Breasts with this density lower the sensitivity of mammography to detect focal lesions. Prior study comparison: Compared with prior studies the most recent being 09/24/11, 09/09/10. No mammographic evidence of malignancy. Bilateral symmetric subpectoral breast implants. No suspicious calcifications. ~ Procedure Note MertTeDO - 08/21/2022 Procedure:MM MAMMO DIGITAL DORON SCREEN AUG BILAT ~ Reason for exam: history of breast augmentation, asymptomatic. Z12.31-Encounter for screening mammogram for malignant neoplasm of gnccop-UKL-28-CM ~ MM MAMMO DIGITAL DORON SCREEN AUG BILAT ~ Bilateral CC and MLO view(s) were taken. ~ Technologist: Jazmine Engel, RT The breast tissue is very dense. Breasts with this density lower the sensitivity of mammography to detect focal lesions. Prior study comparison: Compared with prior studies the most recentbeing 09/24/11, 09/09/10. No mammographic evidence of malignancy. Bilateral symmetric subpectoral breast implants. No suspicious calcifications. ~ IMPRESSION: Negative (INF-Ymibtanj-1) ~ RECOMMENDATION: Routine screening mammogram in 1 year. ~ DISCLAIMER * Any patient with a palpable abnormality, unexplained by breast imaging, should be managed on clinical basis by the attending physician. * Breast imaging has a false negative rate of 15%. * The patient was notified by mail of the results of this examination. *The patient's information was entered into a reminder system with atarget due date for the next mammogram, in accordance with the [employer] and the Society of Breast Imaging recommendations. Eileen Quevedo MD IMG MAMMOGRAPHY ORDERABLES Fi nal Result * CORRECTIONAL MAINTENANCE TECHNICIAN CYTOLOGY REQUEST (PAP ONLY) (03/19/2021 1:46 PM EDT) CASE REPORT Gynecologic Cytology Report Case: [id number] Authorizing Provider: Eileen Quevedo MD Collected: 03/19/2021 1346 Ordering Location: [facility] Received: 03/19/2021 1346 First Screen: Leeroy Llamas CT Specimen: LIQUID-BASED PAP - CERVICAL/ENDOCERV ICAL, Cervix, Endocervical 03/21/2021 10:36 AM EDT [facility] PAP FINAL DIAGNOSIS Negative for intraepithelial lesion or malignancy 03/21/2021 10:36 AM EDT [facility] at 1036 EDT MICROSCOPIC DESCRIPTION Microscopic examination is performed and the findings corroborate the diagnosis. 03/21/2021 10:36 AM EDT [facility] PAP SMEAR ADEQUACY Satisfactory for evaluation 03/21/2021 10:36 AM EDT [facility] ENDOCERVICAL T-ZONE Transformation Zone Absent. This is not unusual in a post-menopausal woman. 03/21/2021 10:36 AM EDT [facility] EMBEDDED IMAGES 10:36 AM EDT [facility] PAP DISCLAIMER The Pap Smear is a screening test that aids in the detection of cervical cancer and cancer precursors. Both false positive and false negative results can occur. The test should be used at regular intervals, and positive results should be confirmed before definitive therapy. Processed using the ThinPrep Intelligence Analyst Automated cytology screening device (PO-MO). 03/21/2021 10:36 AM EDT [facility] PAP OTHER FINDINGS Many acute inflammatory cells noted. 03/21/2021 10:36 AM EDT [facility] Thin Prep ENDOCERVICAL STRUCTURE / Unknown 03/19/2021 1:46 PM EDT 03/19/2021 1:46 PM EDT us Eileen Quevedo MD CYTOLOGY ORDERABLES Final Res ult [facility] [address] [place] [address] * [facility] COLONOSCOPY (02/20/2021 8:30 AM EDT) 02/20/2021 8:30 AM EDT Impressions [facility] - 02/20/2021 9:16 AM EDT Polyp (3 mm) in the transverse colon. (Biopsy). Polyp (3 mm) in the sigmoid colon. (Biopsy). Pale appearing mucosa and abnormal vascularity in the rectum. (Biopsy). Internal hemorrhoids. Fair prep. A significant amount of water and time were spent making the prep good after additional irrigation and suction. Despite this, there were some areas with adherent, thick, opaque stool that could not be sufficiently cleared. Plan: Follow up pathology results. Repeat colon in 1 year with 2 day bowel prep. This section is an excerpt of the full report. us Matilda Taylor MD GI PROCEDURE ORDERABLES Final Result [facility] [address] [place] [address] * (ABNORMAL) COLOGUARD (12/26/2020 11:00 AM EDT) COLOGUARD CLINICAL REPORT Positive( A) Negative [employer] Comment: POSITIVE TEST RESULT. A positive Cologuard result should be followed with a colonoscopy or visual examination of the colon. The normal value (reference range) for this assay is negative. TEST DESCRIPTION: Composite algorithmic analysis of stool DNA-biomarkers with hemoglobin immunoassay. Quantitative values of individual biomarkers are not reportable and are not associated with individual biomarker result reference ranges. Cologuard is intended for colorectal cancer screening of adults of either sex, 45 years or older, who are at average-risk for colorectal cancer (CRC). Cologuard has been approved for use by the U.S. FDA. The performance of Cologuard was established in a cross sectional study of average-risk adults aged 50-84. Cologuard performance in patients ages 45 to 49 years was estimated by sub-group analysis of near-age groups. Colonoscopies performed for a positive result may find as the most clinically significant lesion: colorectal cancer [4.0%], advanced adenoma (including sessile serrated polyps greater than or equal to 1cm diameter) [20%] or non- advanced adenoma [31%]; or no colorectal neoplasia [45%]. These estimates are derived from a prospective cross-sectional screening study of 10,000 individuals at average risk for colorectal cancer who were screened with both Cologuard and colonoscopy. (Taylor Nayak. et al, N Engl J Med 2014;370(14):4896-7012.) Cologuard may produce a false negative or false positive result (no colorectal cancer or precancerous polyp present at colonoscopy follow up). A negative Cologuard test result does not guarantee the absence of CRC or advanced adenoma (pre-cancer). The current Cologuard screening interval is every 3 years. ([employer] and U.S. Multi-Society Task Force). Cologuard performance data in a 10,000 patient pivotal study using colonoscopy as the reference method can be accessed at the following location: [email or web address]/results. Additional description of the Cologuard test process, warnings and precautions can be found at www.cologuard.com. Stool specimen (specimen) 12/26/2020 11:00 AM EDT 12/27/2020 8:20 PM EDT Eileen Quevedo MD [employer] - ORDERABLES Fi nal Result Performing Organization Address [facility]/ZIP Co de Phone Number [email or web address] [address] [place] [address] [employer] [phone] [place] [address] * (ABNORMAL) HEPATITIS C ANTIBODY - SCREENING (09/02/2018 10:07 AM EST) Hep C Ab Reactive( A) Non-React hardeep 09/02/2018 4:40 PM EST [facility] Comment:Weakly Reactive. Pre sumptive evidence of antibodies to HCV, however nonspecific (false positive) results may occur in this range. Supplemental confirmatory testing of a follow-up specimen is recommended. The recommended follow-up test is HCV QUANT W/RFLX TO GENOTYPE -REF LAB Blood VENOUS BLOOD / Unknown Venipuncture / Unknown 09/02/2018 10:07 AM EST 09/02/2018 10:07 AM EST Eileen Quevedo MD HEMATOLOGY ORDERABLES Final R esult [facility] [address] [facility] , [place] [address] from Last 3 Months or Most Recently Relevant to Health Maintenance Insurance [facility] MEDICARE CMPLT FS HMO MR MEDICARE CMPLT FS HMO MR [facility] [place] [id number] ATTN: JOJO PEREZ [phone] [facility] [place] [id number] Advance Directives For more information, please contact: [phone] * Full Code (Latest Code Status on File) Date Activated Date Inactivated Comments 09/25/2012 10:55 PM 09/27/2012 8:41 PM 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
--- OUTSIDE RECORDS SUMMARY | 2025-01-07 14:39 | XMS_ITS | Data Portability ---
Author Organization [facility] Address [address] [facility] [address] [place] [address] Assessment Encounter Date Assessment Date Assessment LastModified by Organization Details LastModified Time 03/28/2024 03/28/2024 INTERVAl HX: Ms. Esposito is a 59-year-old female who returns today with complaints of neck and lower back pain. The pain in both her cervical and lumbar regions is nonradiating and axial in nature. Her symptoms do fluctuate depending on her activity level, made worse with repetitive movements, rotation Frequent changes in weather. She describes pain as an aching, stiff, sharp and throbbing pain. Her symptoms are well-managed with her current oral medication regimen. This is an established patient with chronic pain that is been treated here since July 2021. Pertinent Imaging: MR CERVICAL SPINE WITHOUT CONTRAST, 01/24/2020: C2-3: Unremarkable. C3-4: Unremarkable. C4-5: Minimal posterior disc bulge without spinal canal or foraminal stenosis. C5-6: Unremarkable. C6-7: Prominent central/right central disc extrusion measuring 10 x 4 mm (transverse, anteroposterior) and demonstrating 6 mm of caudal migration below the C7 inferior endplate. This effaces the ventral thecal sac and moderately indents the right ventral spinal cord. No foraminal stenosis. C7-T1: Unremarkable. MRI LUMBAR SPINE WITHOUT CONTRAST, 05/16/2019: L1-L2: Unremarkable. L2-L3: Unremarkable. L3-L4: Minimal disc bulging with minimal ventral flattening the thecal sac. Normal narrowing of the left L3 neural foramen L4-L5: Mild disc bulging with mild ventral flattening of the thecal sac. Mild facet arthropathy. 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 Made the symptoms worse. Surgical: None RISK FACTORS: Smoker: Current everyday smoker Employed: Denies Diabetic: Denies Anticoagulated: Denies Injection Hx Reports that all past injection therapy has been ineffective Medication Hx: Percocet 10/325 mg 1 3 times a day. Compound cream apply to left lateral calf and ankle helpful Cyclobenzaprine 10 mg 1 tablet 3 times a day Lyrica 50 mg 1 twice a day discontinued due to patient reports of weight gain Medications reviewed today. No aberrant behaviors noted. Her Percocet offers 90% relief of pain for several hours with each dose. This makes it possible for her to remain very active and engage in hobbies. No side effects. Compliance: Most recent UDS confirmation from 01/25/2024 was appropriate Based on above screening, co-morbidities, MED, and my clinical judgement: I consider this patient to be moderate risk for abuse/diversion. ORT: 1 PHQ-9: 0 Plan: We are not currently performing interventional procedures for the patient. She feels that her symptoms are very well-tolerated with oral medication alone. 1. Continue medication regimen without change. Follow-up in 60 days This dictation is generated using voice recognition technology. There may be unintended errors. cl Not available 03/28/2024 11:06:22 05/25/2024 05/25/2024 Pain History: Ms. Esposito is a 59-year-old female who returns to the office today for evaluation of her chronic neck and lower back pain. She denies any changes in her living condition since last visit. Her neck and lower back pain is nonradiating, axial in nature and extends into bilateral paraspinal regions. She describes the pain as an aching, stiff, sharp and throbbing. Her symptoms become aggravated with overexertion and frequent changes in weather. This is an established patient with chronic pain that is been treated here since July 2021. Past Medical History: Anxiety, Depression, Headaches, Hypertension Imaging: MR CERVICAL SPINE WITHOUT CONTRAST, 01/24/2020: C2-3: Unremarkable. C3-4: Unremarkable. C4-5: Minimal posterior disc bulge without spinal canal or foraminal stenosis. C5-6: Unremarkable. C6-7: Prominent central/right central disc extrusion measuring 10 x 4 mm (transverse, anteroposterior) and demonstrating 6 mm of caudal migration below the C7 inferior endplate. This effaces the ventral thecal sac and moderately indents the right ventral spinal cord. No foraminal stenosis. C7-T1: Unremarkable. MRI LUMBAR SPINE WITHOUT CONTRAST, 05/16/2019: L1-L2: Unremarkable. L2-L3: Unremarkable. L3-L4: Minimal disc bulging with minimal ventral flattening the thecal sac. Normal narrowing of the left L3 neural foramen L4-L5: Mild disc bulging with mild ventral flattening of the thecal sac. Mild facet arthropathy. Minimal narrowing of the left L4 neural foramen L5-S1: Mild facet arthropathy Surgical evaluation/ history: None Conservative Treatments: Patient has failed conservative measures for greater than 6 weeks including physical therapy/chiroprac tic care/spinal manipulation, a monitored home exercise program, and/or NSAIDs within the last six months. Interventional treatment history: Reports that all past injection therapy has been ineffective Previous analgesics: Meloxicam Cymbalta Gabapentin Lyrica 50 mg 1 twice a day discontinued due to patient reports of weight gain Butrans Current analgesics: Percocet 10/325 mg 1 3 times a day. Compound cream apply to left lateral calf and ankle helpful Cyclobenzaprine 10 mg 1 tablet 3 times a day Compliance Monitoring: UDS was obtained at today's visit. Will send off results. Most recent UDS confirmation from 01/25/2024 was appropriate Constantine reviewed and is appropriate Based on above screening, co-morbidities, MED, and my clinical judgement: I consider this patient to be moderate risk for abuse/diversion. She will follow-up in 2 months for medication management. Anticoagulant/Ant iplatelet Medications: Denies [email or web address] Not available 05/25/2024 11:07:22 07/22/2024 07/22/2024 Pain History: 59-year-old female returns for evaluation of her chronic cervical spine and lumbar spine pain. She states her pain has been stable since last seen. Currently her low back pain is her worst generator. Pain is nonradiating described as stiff, aching, sharp. Her symptoms are aggravated with increased activity, repetitive movements, walking, standing, ascending/descend ing stairs and weather changes. Relieving factors include pain medication, rest, heat, ice, activity modification. No numbness tingling or weakness in lower extremities. This is an established patient with chronic pain that is been treated here since July 2021. Past Medical History: Anxiety, Depression, Headaches, Hypertension Imaging: MR CERVICAL SPINE WITHOUT CONTRAST, 01/24/2020: C2-3: Unremarkable. C3-4: Unremarkable. C4-5: Minimal posterior disc bulge without spinal canal or foraminal stenosis. C5-6: Unremarkable. C6-7: Prominent central/right central disc extrusion measuring 10 x 4 mm (transverse, anteroposterior) and demonstrating 6 mm of caudal migration below the C7 inferior endplate. This effaces the ventral thecal sac and moderately indents the right ventral spinal cord. No foraminal stenosis. C7-T1: Unremarkable. MRI LUMBAR SPINE WITHOUT CONTRAST, 05/16/2019: L1-L2: Unremarkable. L2-L3: Unremarkable. L3-L4: Minimal disc bulging with minimal ventral flattening the thecal sac. Normal narrowing of the left L3 neural foramen L4-L5: Mild disc bulging with mild ventral flattening of the thecal sac. Mild facet arthropathy. Minimal narrowing of the left L4 neural foramen L5-S1: Mild facet arthropathy Surgical evaluation/ history: None Conservative Treatments: Patient has failed conservative measures for greater than 6 weeks including physical therapy/chiroprac tic care/spinal manipulation, a monitored home exercise program, and/or NSAIDs within the last six months. Interventional treatment history: Reports that all past injection therapy has been ineffective Previous analgesics: Meloxicam Cymbalta Gabapentin Lyrica 50 mg 1 twice a day discontinued due to patient reports of weight gain Butrans Current analgesics: Percocet 10/325 mg 1 3 times a day. Compound cream apply to left lateral calf and ankle helpful Cyclobenzaprine 10 mg 1 tablet 3 times a day Compliance Monitoring: UDS was obtained at today's visit. Will send off results. Most recent UDS confirmation from 05/25/2024 was appropriate Constantine reviewed and is appropriate Based on above screening, co-morbidities, MED, and my clinical judgement: I consider this patient to be moderate risk for abuse/diversion. She will follow-up in 2 months for medication management. Anticoagulant/Ant iplatelet Medications: Denies [email or web address] Not available 07/22/2024 12:56:40 09/21/2024 09/21/2024 Pain History: Ms. Esposito is a 59-year-old female returning to the office today with ongoing neck and lower back pain. She denies any changes in her health or pain condition since last visit. Her lower back continues to cause the most pain. The pain is primarily axial in nature without radiation into her lower extremities. The symptoms do become aggravated with overexertion, prolonged standing or walking as well as household activities such as vacuuming or laundry. Her symptoms remain very well-managed with oral medication conservative measures. This is an established patient with chronic pain that is been treated here since July 2021. Past Medical History: Anxiety, Depression, Headaches, Hypertension Imaging: MR CERVICAL SPINE WITHOUT CONTRAST, 01/24/2020: C2-3: Unremarkable. C3-4: Unremarkable. C4-5: Minimal posterior disc bulge without spinal canal or foraminal stenosis. C5-6: Unremarkable. C6-7: Prominent central/right central disc extrusion measuring 10 x 4 mm (transverse, anteroposterior) and demonstrating 6 mm of caudal migration below the C7 inferior endplate. This effaces the ventral thecal sac and moderately indents the right ventral spinal cord. No foraminal stenosis. C7-T1: Unremarkable. MRI LUMBAR SPINE WITHOUT CONTRAST, 05/16/2019: L1-L2: Unremarkable. L2-L3: Unremarkable. L3-L4: Minimal disc bulging with minimal ventral flattening the thecal sac. Normal narrowing of the left L3 neural foramen L4-L5: Mild disc bulging with mild ventral flattening of the thecal sac. Mild facet arthropathy. Minimal narrowing of the left L4 neural foramen L5-S1: Mild facet arthropathy Surgical evaluation/ history: None Conservative Treatments: Patient has failed conservative measures for greater than 6 weeks including physical therapy/chiroprac tic care/spinal manipulation, a monitored home exercise program, and/or NSAIDs within the last six months. Interventional treatment history: Reports that all past injection therapy has been ineffective Previous analgesics: Meloxicam Cymbalta Gabapentin Lyrica 50 mg 1 twice a day discontinued due to patient reports of weight gain Butrans Current analgesics: Percocet 10/325 mg 1 3 times a day. Compound cream apply to left lateral calf and ankle helpful Cyclobenzaprine 10 mg 1 tablet 3 times a day Compliance Monitoring: UDS was obtained at today's visit. Will send off results. Most recent UDS confirmation from 07/22/2024 was appropriate Constantine reviewed and is appropriate Based on above screening, co-morbidities, MED, and my clinical judgement: I consider this patient to be moderate risk for abuse/diversion. She will follow-up in 2 months for medication management. Anticoagulant/Ant iplatelet Medications: Giana smallwood Not available 09/21/2024 10:50:37 11/15/2024 11/15/2024 Pain History: Ms. Esposito is a 59-year-old female here with chronic neck and lower back pain. Her symptoms remain stable and unchanged. Unfortunately, her lower back has continued to cause more pain than her neck. The pain is nonradiating, axial nature and is described as an aching, stiff and throbbing. Her symptoms are primarily aggravated with overexertion and household activities. Her symptoms remain tolerable with oral medication conservative measures. She does not wish to consider injection therapy. This is an established patient with chronic pain that is been treated here since July 2021. Past Medical History: Anxiety, Depression, Headaches, Hypertension Imaging: MR CERVICAL SPINE WITHOUT CONTRAST, 01/24/2020: C2-3: Unremarkable. C3-4: Unremarkable. C4-5: Minimal posterior disc bulge without spinal canal or foraminal stenosis. C5-6: Unremarkable. C6-7: Prominent central/right central disc extrusion measuring 10 x 4 mm (transverse, anteroposterior) and demonstrating 6 mm of caudal migration below the C7 inferior endplate. This effaces the ventral thecal sac and moderately indents the right ventral spinal cord. No foraminal stenosis. C7-T1: Unremarkable. MRI LUMBAR SPINE WITHOUT CONTRAST, 05/16/2019: L1-L2: Unremarkable. L2-L3: Unremarkable. L3-L4: Minimal disc bulging with minimal ventral flattening the thecal sac. Normal narrowing of the left L3 neural foramen L4-L5: Mild disc bulging with mild ventral flattening of the thecal sac. Mild facet arthropathy. Minimal narrowing of the left L4 neural foramen L5-S1: Mild facet arthropathy Surgical evaluation/ history: None Conservative Treatments: Patient has failed conservative measures for greater than 6 weeks including physical therapy/chiroprac tic care/spinal manipulation, a monitored home exercise program, and/or NSAIDs within the last six months. Interventional treatment history: Reports that all past injection therapy has been ineffective Previous analgesics: Meloxicam Cymbalta Gabapentin Lyrica 50 mg 1 twice a day discontinued due to patient reports of weight gain Butrans Current analgesics: Percocet 10/325 mg 1 3 times a day. Compound cream apply to left lateral calf and ankle helpful Cyclobenzaprine 10 mg 1 tablet 3 times a day Compliance Monitoring: No UDS today Most recent UDS confirmation from 09/21/2024 was appropriate Constantine reviewed and is appropriate Based on above screening, co-morbidities, MED, and my clinical judgement: I consider this patient to be moderate risk for abuse/diversion. She will follow-up in 2 months for medication management. Anticoagulant/Ant iplatelet Medications: Giana smallwood Not available 11/15/2024 12:11:53 Plan of Treatment Reminders Order Date Submit Date Provider Last Modified By Organization Details Last Modified Time Details Appointments FOLLOW UP 15 2024 10:15A M MISA GREENFIELD NP Not available Not available Not available Lab drug screen, urine 2024 025 [facility], [address] [place] [address], [id number], 09/26/2024 14:05:28 drug screen, urine 2024 025 [facility], [facility], [address] [place] [address], [id number], 07/28/2024 09:40:50 drug screen, urine 2023 024 [facility], [facility], [address] [place] [address], [id number], 05/30/2024 13:19:47 Referral None recorded . Procedures None recorded . Surgeries None recorded . Imaging None recorded . Medication Orders oxycodon e-acetam inophen 10 mg-325 mg tablet 2024 025 [facility] [address] [place], [address], 12/06/2024 11:42:58 oxycodon e-acetam inophen 10 mg-325 mg tablet 2024 025 [facility], [address] [facility] [place] [address], 01/03/2025 15:24:11 oxycodon e-acetam inophen 10 mg-325 mg tablet 2024 025 [facility], [address], [place], [address], 09/21/2024 11:31:49 oxycodon e-acetam inophen 10 mg-325 mg tablet 2024 025 [facility], [address], [place], [address], 11/04/2024 16:08:03 oxycodon e-acetam inophen 10 mg-325 mg tablet 2024 025 [facility], [address], [place], [address], 07/22/2024 11:45:46 oxycodon e-acetam inophen 10 mg-325 mg tablet 2024 025 [facility], [address], [place], [address], 07/22/2024 11:45:47 oxycodon e-acetam inophen 10 mg-325 mg tablet 2023 024 [facility], [address], [place], [address], 05/25/2024 13:47:01 oxycodon e-acetam inophen 10 mg-325 mg tablet 2023 024 [facility], [address], [place], [address], 05/25/2024 10:55:51 oxycodon e-acetam inophen 10 mg-325 mg tablet 2023 024 [facility], [address], [place], [address], 03/28/2024 12:42:17 oxycodon e-acetam inophen 10 mg-325 mg tablet 2023 024 [facility], [address], [place], [address], 04/27/2024 09:43:30 Patient TargetsNo targets recorded. Patient Instructions Encounter Date Encounter Id Patient Instructions Last Modified By Organization Details Last Modified Time 11/15/2024 [id number] advance directives: care instructions [facility] [place] Not available 11/15/2024 12:13:10 depression and chronic disease: care instructions [facility] [place] Not available 11/15/2024 12:13:10 A healthy lifestyle: care instructions [facility] [place] Not available 11/15/2024 12:13:10 safe use of opioid pain medicine: care instructions [facility] [place] Not available 11/15/2024 12:13:10 Learning About Benefits of Quitting Sm[email or web address] Not available 11/15/2024 12:13:10 Reason for Referral None Reported. Results Created Date Observation Date Name Description Value Unit Range Abnormal Flag Note LastModifiedBy Organization Detail LastModifiedTime Result Notes None recorded. Problems Name Problem SNOMED Code Status Onset Date Resolution Date Notes Provider Name and Address Organization Details Recorded Time Idiopathic peripheral neuropathy 58868709 Active 2023 MISA GREENFIELD NP [address] [place] [address], [phone] , [facility] 4 10:20:30 Chronic pain 92656202 Active 2023 MISA GREENFIELD NP [address] [place] [address], [phone] , [facility] 4 12:36:25 Cervical spondylosi s 330682173 Active 2021 Kareem Schultz MD [address] [place] [address], [phone] , [facility] 2 13:08:27 Lumbar spondylosi s 066214674 Active 2021 Kareem Schultz MD [address] [place] [address], [phone] , [facility] 2 13:08:33 Degenerati on of cervical interverte bral disc 64217484 Active 2021 Kareem Schultz MD [address] [place], [address] , [facility] 2 13:15:59 Long-term drug therapy Active 2021 YARY YANG NP [address] [place], [address] , [facility] 2 10:56:40 Myofascial pain 413529665 Active 2022 Glenda Lynn [facility] 3 10:59:25 Pain disorder with psychologi allison factor 754925416359 Active 2022 Patsy De Dios [facility] 3 09:50:52 Problem Notes None recorded. Procedures Surgical History Date Name Laterality Status Provider Name and Address Organization Details Recorded Time 08/13/19 augmentation mammoplasty completed Cristopher Hendrickson [facility] 09/21/2024 10:27:09 Orthopedic Surgery completed Jazmine Ortega [facility] 08/06/2021 12:57:32 [facility] 12:57:49 [facility] 12:57:55 Imaging Results None recorded. Procedure Notes None recorded. Medical Equipment None Reported. Allergies No known drug allergies Medications Name Sig Start Date Stop Date Status Note LastModified by Organization Details LastModified Time RX Alternative Neuropathic Pain Cream Apply 1-2 grams BID-TID 2023 active Not Available Not Available Not Avai lable cyclobenzap rine 10 mg tablet TAKE 1 TABLET BY MOUTH THREE TIMES A DAY FOR PAIN AND SPASMS 11/14 completed Not Available Not Available Not Available amoxicillin 500 mg capsule TAKE 1 CAPSULE ORALLY THREE TIMES DAILY FOR 10 DAYS 09/27 completed Not Available Not Available Not Available bupropion HCl SR 150 mg tablet,12 hr sustained-r elease TAKE 1 TABLET BY MOUTH TWICE A DAY active Not Available Not Available No t Available trazodone 50 mg tablet TAKE 1 TABLET BY MOUTH EVERY DAY AT NIGHT active Not Available Not Available No t Available atorvastati n 10 mg tablet TAKE 1 TABLET BY MOUTH EVERY DAY active Not Available Not Available No t Available benzonatate 200 mg capsule TAKE 1 CAPSULE BY MOUTH 3 TIMES DAILY NEEDED FOR COUGH FOR UP TO 10 DAYS. active Not Available Not Available No t Available sertraline 100 mg tablet TAKE 1 TABLET BY MOUTH EVERY DAY active Not Available Not Available No t Available meloxicam 7.5 mg tablet 08/06 completed Not Available Not Available Not Available oxycodone-a cetaminophe n 10 mg-325 mg tablet TAKE 1 TABLET BY MOUTH EVERY 8 HOURS. active Not Available Not Available No t Available buspirone 7.5 mg tablet TAKE 2 TABLETS BY MOUTH TWICE A DAY active Not Available Not Available No t Available metoprolol succinate ER 25 mg tablet,exte nded release 24 hr TAKE 1 TABLET BY MOUTH EVERY DAY 11/14 completed Not Available Not Available Not Available methylpredn isolone 4 mg tablets in a dose pack TAKE 6 TABLETS ON DAY 1 DIRECTED ON PACKAGE AND DECREASE BY 1 TAB EACH DAY FOR A TOTAL OF 6 DAYS active Not Available Not Available No t Available rosuvastati n 10 mg tablet TAKE 1 TABLET BY MOUTH EVERY DAY AT NIGHT 11/14 completed Not Available Not Available Not Available duloxetine 60 mg capsule,del ayed release TAKE 1 CAPSULE BY MOUTH EVERY DAY active Not Available Not Available No t Available pregabalin 50 mg capsule Take 1 capsule twice a day by oral route as directed for 30 days. 01/29 completed Not Available Not Available Not Available oxycodone 10 mg tablet TAKE 1 TABLET BY MOUTH 3 TIMES DAILY NEEDED FOR PAIN 09/03 completed Not Available Not Available Not Available bupropion HCl 150 mg tablet,12 hr sustained-r elease(smok ing deterrent) TAKE 1 TABLET BY MOUTH TWICE DAILY 11/14 completed Not Available Not Available Not Available BinaxNOW COVID-19 Ag Self Test kit TEST DIRECTED TODAY 11/26 completed Not Available Not Available Not Available Vitals Date Recorded Body height Body mass index (BMI) Body weight Heart rate Systolic blood pressure Diastolic blood pressure Provider Name and Address Organization Details Last Updated DateTime 5 162.56 cm 22.3 kg/m2 90578.0 1 g 83 /min 111 mm[Hg] 70 mm[Hg] Cristopher Hendrickson Counts include 234 beds at the [facility] 5 10:39:25 Date Recorded Body height Body mass index (BMI) Body weight Heart rate Oxygen saturation Oxygen saturation in Arterial blood by Pulse oximetry Systolic blood pressure Diastolic blood pressure Provider Name and Address Organization Details Last Updated DateTime 5 162.56 cm 22.3 kg/m2 59768.0 1 g 75 /min 98 % 98 % 116 mm[Hg] 6 mm[Hg] Cristopher Hendrickson Counts include 234 beds at the [facility] 5 10:27:29 Date Recorded Body height Body mass index (BMI) Body weight Oxygen saturation Oxygen saturation in Arterial blood by Pulse oximetry Heart rate Systolic blood pressure Diastolic blood pressure Provider Name and Address Organization Details Last Updated DateTime 5 162.56 cm 22.3 kg/m2 76696.0 1 g 96 % 96 % 81 /min 145 mm[Hg] 94 mm[Hg] aubrie ramos Counts include 234 beds at the [facility] 5 10:49:21 Date Recorded Body height Body mass index (BMI) Body weight Provider Name and Address Organization Details Last Updated DateTime 03/28/2024 162.56 cm 22.3 kg/m2 60439.01 g Terrie Nielsenwell Counts include 234 beds at the [facility] 03/28/2024 10:19:49 Date Recorded Body height Heart rate Systolic blood pressure Diastolic blood pressure Provider Name and Address Organization Details Last Updated DateTime 05/25/2024 162.56 cm 85 /min 123 mm[Hg] 70 mm[Hg] Judy [facility] Counts include 234 beds at the [facility] 05/25/2024 10:30:13 Social History Question Answer Notes LastModified by Organizat ion Details LastModified Time Tobacco Smoking Status Former Smoker Cristopher Márquezstephanie hardwick Counts include 234 beds at the [facility] 07/22/2024 10:39:43 Do You Have An Advance Directive? No [email or web address] Information n ot available 04/02/2022 In The 14 Days Before Symptom Onset, Have You Had Close Contact With A Laboratory-confirm ed COVID-19 While That Case Was Ill? No [email or web address] Information n ot available 01/03/2022 In The 14 Days Before Symptom Onset, Have You Had Close Contact With A Person Who Is Under Investigation For COVID-19 While That Person Was Ill? No [email or web address] Information not available 01/03/2022 What Type Of Diet Are You Following? REGULAR Information n ot available 08/06/2021 What Is The Highest Grade Or Level Of School You Have Completed Or The Highest Degree You Have Received? [id number] [email or web address] Information not available 01/03/2022 Do You Have A Medical Power Of Glassine Machine Tender? No [email or web address] Information not available 07/29/2023 What Was The Date Of Your Most Recent Tobacco Screening? 09/21/2024 [email or web address] Information not available 09/21/2024 What Is Your Relationship Status? [email or web address] Information not available 08/06/2021 How Much Tobacco Do You Smoke? 0.5 PPD [email or web address] Information not available 08/06/2021 How Many Years Have You Smoked Tobacco? 25 [email or web address] Information not available 08/06/2021 Sex: Unknown Functional Status Question Answer Note LastModified by Organizat ion Details LastModified Time Do you use any illicit or recreational drugs? No [email or web address] Information not available 01/03/2022 What is your level of alcohol consumption? None [email or web address] Information not available 08/06/2021 Are you currently employed? No [email or web address] Information not available 01/03/2022 Are you able to walk? [email or web address] Information not available 08/06/2021 What is your exercise level? None [email or web address] Information not available 08/06/2021 Mental Status None recorded. Family History Relationship Description Onset Age of this Age Resolved Age Notes LastModified by Organization Details LastModified Time Father No current problems or disability [email or web address] Not available 10:53:26 Father Heart disease [email or web address] Not available 01/11 10:53:26 Mother No current problems or disability [email or web address] Not available 10:53:26 Medical History Condition Response Bipolar Disease N Coronary Artery Disease N Gout N Seizure Disorder N Atrial Fibrillation N Thyroid Disease N Head Trauma/Injury N Hernia N Depression Y COPD N Anxiety Disorder Y Acid Reflux (GERD) N Cancer N Skin Disorder N Stroke N High Cholesterol N Liver Disease N Rheumatoid Arthritis N Fibromyalgia N Headaches Y Autoimmune Disease N Kidney Disease N Osteoarthritis N Neurosurgery N DVT N Peptic Ulcer Disease N Anemia N Heart Attack ([place]) N Diabetes N Cardiomyopathy N Bleeding Disorder N CHF N AIDS/HIV N Inflammatory Bowel Disease N Dementia N Asthma N Substance Abuse N Sleep Apnea N Hepatitis N Heart Disease N Pulmonary Embolism N Chronic Low Back Pain Y Hypertension Y Osteoporosis N Gynecological HistoryNo gynecological history recorded. Obstetrics History GPAL:G 0 P 0 0 0 0 Past Encounters Encounter ID Performer Location Encounter Start Date Encounter Closed Date Diagnosis/Indication Diagnosis SNOMED-CT Code Diagnosis ICD10 Code Diagnosis Note [id number] Kareem Schultz MD [employer] [address] [place] [address] 08/06/2021 12:38:02 08/06/2021 13:17:38 Long-term drug therapy 959436636 Z79.899 The urine sample is being sent for quantitati ve LCMS analysis of illicit drugs (Cocaine, Methamphet amine, Heroin, Fentanyl, THC, Synthetic Cannabinoi ds, Kratom, MDMA, PCP, and Synthetic Stimulants , Opiates (Codeine, Hydrocodon e, Hydromorph one, and Morphine), Oxycodone, Oxymorphon e, Methadone, Synthetic Opioids (Tramadol, Tapentadol , and Buprenorph ine), Benzodiaze pines (Alprazola m, Clonazepam , Lorazepam, Diazepam, Nordazepam , Oxazepam, and Temazepam) , Gabapentin , Pregabalin , Muscle Relaxants (Carisopro dol, Cyclobenza brant, and Meprobamat e), Ketamine, Nalaxone, and Amphetamin e, as this patient is being prescribed opioid medication s for the first time at this practice. The purpose of this analysis is to confirm the patients stated medication usage and to establish baseline medication and metabolite quantities , and to evaluate for use of medication s that are not prescribed or reported by the patient. Cervical spondylosis 387 446292 M47.812 Lumbar spondylosis 33916 0009 M47.816 Degenerati on of cervical intervertebral disc 53381282 M50.30 [id number] Kareem Schultz MD [employer] [address] [address] 09/03/2021 10:49:01 09/03/2021 11:06:43 Long-term drug therapy 868324516 Z79.899 Send for LCMS confirmati on of Oxycodone and Oxymorphon e to confirm the quantitati ve levels of these drugs that the patient is prescribed . Send for LCMS confirmati on of Opiates (Codeine, Hydrocodon e, Hydromorph one, Morphine, and Heroin) as these are frequently used and/or abused pain medication s amongst chronic pain patients in our community. Send for LCMS confirmati on of Synthetic Opioids (Fentanyl, Methadone, Tramadol, Tapentadol , and Buprenorph ine) as these drugs will not be detected in Opiate [place] testing and these are also frequently used and/or abused pain medication s in our community. Lumbar spondylosis 82884 0009 M47.816 Cervical spondylosis 387 850841 M47.812 Degenerati on of cervical intervertebral disc 07482005 M50.30 [id number] Kareem Schultz MD [address] [address] 10/01/2021 10:40:19 10/01/2021 11:09:32 Degeneration of cervical intervertebral disc 13958637 M50.30 Cervical spondylosis 387 681919 M47.812 Long-term drug therapy 924643056 Z79.982 [id number] Kareem Schultz MD [employer] [address] [place] [address] 10/29/2021 10:48:42 10/29/2021 11:18:07 Long-term drug therapy 107369901 Z79.899 Send for LCMS confirmati on of Oxycodone and Oxymorphon e to confirm the quantitati ve levels of these drugs that the patient is prescribed . Send for LCMS confirmati on of Opiates (Codeine, Hydrocodon e, Hydromorph one, Morphine, and Heroin) as these are frequently used and/or abused pain medication s amongst chronic pain patients in our community. Send for LCMS confirmati on of Synthetic Opioids (Fentanyl, Methadone, Tramadol, Tapentadol , and Buprenorph ine) as these drugs will not be detected in Opiate [place] testing and these are also frequently used and/or abused pain medication s in our community. Lumbar spondylosis 54974 0009 M47.816 Cervical spondylosis 387 157312 M47.812 Degenerati on of cervical intervertebral disc 68626659 M50.30 [id number] Kareem Schultz MD [place] [address] [facility] [address] [place] [address] 12/03/2021 14:53:16 12/03/2021 15:11:39 Lumbar spondylosis 644376379 M47.816 Cervical spondylosis 387 004968 M47.812 Degenerati on of cervical intervertebral disc 01679642 M50.30 Long-term drug therapy 036102273 Z79.899 Based on the patients urine confirmati on (LCMS) results, the patient's overall risk level will remain the same. I would consider the patient to be Moderate risk based on these new results. In response to the patient's risk level and urine confirmati on I plan to not change the patient's opioid prescripti on. [id number] Kareem Schultz MD [facility] [address],[facility] [address] [place] [address] 01/03/2022 09:38:01 01/03/2022 10:43:09 Lumbar spondylosis 216432835 M47.816 Cervical spondylosis 387 759771 M47.812 Degenerati on of cervical intervertebral disc 32784133 M50.30 Long-term drug therapy 682609432 Z79.899 Based on the patients urine confirmati on (LCMS) results, the patient's overall risk level will remain the same. I would consider the patient to be Moderate risk based on these new results. In response to the patient's risk level and urine confirmati on I plan to not change the patient's opioid prescripti on. [id number] Kareem Schultz MD [place] [address] [place] [address] 01/29/2022 10:47:04 01/29/2022 11:15:28 Lumbar spondylosis 718266567 M47.816 Cervical spondylosis 387 878013 M47.812 Degenerati on of cervical intervertebral disc 05285034 M50.30 Long-term drug therapy 961130743 Z79.509 [id number] Kareem Schultz MD [place] [address] [address] 04/02/2022 11:06:31 04/02/2022 11:24:51 Lumbar spondylosis 883745960 M47.816 Long-term drug therapy 186937007 Z79.899 Send for LCMS confirmati on of Oxycodone and Oxymorphon e to confirm the quantitati ve levels of these drugs that the patient is prescribed . Send for LCMS confirmati on of Opiates (Codeine, Hydrocodon e, Hydromorph one, Morphine, and Heroin) as these are frequently used and/or abused pain medication s amongst chronic pain patients in our community. Send for LCMS confirmati on of Synthetic Opioids (Fentanyl, Methadone, Tramadol, Tapentadol , and Buprenorph ine) as these drugs will not be detected in Opiate [place] testing and these are also frequently used and/or abused pain medication s in our community. Cervical spondylosis 387 204615 M47.812 Degenerati on of cervical intervertebral disc 32713992 M50.30 [id number] Kareem Schultz MD [place] [address] [address] 05/27/2022 10:04:57 05/27/2022 10:28:40 Lumbar spondylosis 476875402 M47.816 Cervical spondylosis 387 580141 M47.812 Degenerati on of cervical intervertebral disc 50129704 M50.30 Long-term drug therapy 665543302 Z79.880 [id number] Kareem Schultz MD [facility] [employer] [address] [address] 07/31/2022 09:56:48 07/31/2022 10:11:50 Long-term drug therapy 971788474 Z79.899 Lumbar spondylosis 76232 0009 M47.816 Cervical spondylosis 387 974075 M47.812 Degenerati on of cervical intervertebral disc 14529051 M50.30 [id number] Judy Pabon APRN [place] [address] [address] 09/29/2022 10:44:56 09/29/2022 11:09:09 Long-term drug therapy 499808180 Z79.899 Based on the patients urine confirmati on (LCMS) results, the patient's overall risk level will remain the same. I would consider the patient to be Moderate risk based on these new results. In response to the patient's risk level and urine confirmati on I plan to not change the patient's opioid prescripti on. Lumbar spondylosis 99972 0009 M47.816 Cervical spondylosis 387 795297 M47.812 Degenerati on of cervical intervertebral disc 81106941 M50.30 [id number] Kareem Schultz MD [place] [address] [address] 11/26/2022 10:44:10 11/26/2022 11:15:43 Cervical spondylosis 738369577 M47.812 Degenerati on of cervical intervertebral disc 69772526 M50.30 Lumbar spondylosis 24518 0009 M47.816 Long-term drug therapy 239504592 Z79.899 Myofascial pain 40801026 9 M79.10 [id number] Chris Ordoñez MD [place] [address] 6 01/28/2023 09:45:03 01/28/2023 10:03:27 Long-term drug therapy 329903831 Z79.899 Lumbar spondylosis 67194 0009 M47.816 Cervical spondylosis 387 676247 M47.812 Degenerati on of cervical intervertebral disc 77045029 M50.30 Myofascial pain 80942318 9 M79.10 [id number] Kareem Schultz MD [place] [address] [address] 02/19/2023 09:49:41 02/19/2023 10:04:05 Pain disorder with psychological factor 2254488005 07 F45.42 [id number] Kareem Schultz MD [place] [address] [address] 03/25/2023 09:51:41 03/25/2023 10:08:42 Lumbar spondylosis 723988455 M47.816 Cervical spondylosis 387 971161 M47.812 Long-term drug therapy 734111658 Z79.329 [id number] Kareem Schultz MD [place] [address] [place] [address] 05/27/2023 09:15:46 05/27/2023 09:49:48 Long-term drug therapy 503271234 Z79.899 Cervical spondylosis 387 785241 M47.812 Lumbar spondylosis 29557 0009 M47.880 [id number] Kareem Schultz MD [place] [address] [place] [address] 07/29/2023 09:49:25 07/29/2023 10:11:05 Long-term drug therapy 603233442 Z79.899 Cervical spondylosis 387 352718 M47.461 [id number] Kareem Schultz MD [place] [address] [place] [address] 09/28/2023 10:04:42 09/28/2023 10:23:26 Long-term drug therapy 157207779 Z79.899 Cervical spondylosis 387 004333 M47.812 Degenerati on of cervical intervertebral disc 83497729 M50.30 Idiopathic peripheral neuropathy 30259399 G60.9 [id number] Kareem Schultz MD [place] [address] [place] [address] 11/25/2023 11:03:47 11/25/2023 11:19:55 Idiopathic peripheral neuropathy 07318113 G60.9 Lumbar spondylosis 71654 0009 M47.816 Cervical spondylosis 387 354493 M47.812 Degenerati on of cervical intervertebral disc 00695249 M50.30 Long-term drug therapy 909401304 Z79.899 Chronic pain 19858455 G8 9.29 [id number] Kareem Schultz MD [place] [address] [place] [address] 01/25/2024 12:57:29 01/25/2024 13:09:58 Long-term drug therapy 365813895 Z79.899 Lumbar spondylosis 01384 0009 M47.816 Idiopathic peripheral neuropathy 89336349 G60.9 Cervical spondylosis 387 502075 M47.812 Degenerati on of cervical intervertebral disc 39006049 M50.30 Chronic pain 41823484 G8 9.29 [id number] Kareem Schultz MD [place] [address] [address] 03/28/2024 10:09:48 03/28/2024 10:35:06 Lumbar spondylosis 637821241 M47.816 Idiopathic peripheral neuropathy 09933235 G60.9 Cervical spondylosis 387 815087 M47.812 Degenerati on of cervical intervertebral disc 11119734 M50.30 Chronic pain 07834910 G8 9.29 Long-term drug therapy 793646665 Z79.062 [id number] Judy Pabon APRN [place] [address] [address] 05/25/2024 10:21:48 05/25/2024 10:39:03 Cervical spondylosis 405559655 M47.812 , She continues to decline injection therapy as she feels that all past injections were not effective. Her symptoms do remain tolerable with her current oral medication regimen. The relief she receives makes it possible for her to remain active, babysit her grandchild grecia and maintain her household. We will continue this regimen unchanged. Chronic pain 98484582 G8 9.29 Long-term drug therapy 882374444 Z79.899 Lumbar spondylosis 59548 0009 M47.707 [id number] CHERY PADILLA MD [place] [address] [address] 07/22/2024 10:21:26 07/22/2024 11:28:48 Long-term drug therapy 642317287 Z79.899 Chronic pain 28502526 G8 9.29 Cervical spondylosis 387 928700 M47.812 Patient reports continued benefit with use of the medication regimen. Scott reports she is able to maintain daily activities , perform household duties, engage in hobbies as pain allows. No side effects noted. Will continue at same dose and frequency. He does not wish to pursue injection therapy as those performed at outside offices years ago did not offer sustained relief. Lumbar spondylosis 91534 0009 M47.430 [id number] CHERY PADILLA MD [facility] [address] [place] [address] 09/21/2024 10:13:34 09/21/2024 10:40:36 Long-term current use of drug therapy 087117009 Z79.899 Chronic pain 12002639 G8 9.29 Cervical spondylosis 387 317595 M47.812 Patient reports continued benefit with use of the medication regimen. Scott reports she is able to maintain daily activities , perform household duties, engage in hobbies as pain allows. No side effects noted. Will continue at same dose and frequency. He does not wish to pursue injection therapy as those performed at outside offices years ago did not offer sustained relief. Lumbar spondylosis 78804 0009 M47.635 [id number] FELIPE HUGHES MD [facility] [address] [place] [address] 11/15/2024 10:37:51 11/15/2024 10:58:05 Lumbar spondylosis 348253675 M47.816 Cervical spondylosis 387 765119 M47.812 We will not make any changes to her current oral medication regimen. The relief she receives allows her to maintain a very active lifestyle and engage in several different hobbies. He does not wish to pursue injection therapy as those performed at outside offices years ago did not offer sustained relief. Chronic pain 45733890 G8 9.29 Long-term drug therapy 575065090 Z79.899 Health Concerns Section Related Observation LastModified by Organization Detai ls LastModified Time None Recorded Concern Status LastModified by Organization Details LastModified Time None Recorded Advance Directives Directive N: Payers Insurance Date Sequence Insurance Name Policy Number Policy Mensah Covered Member ID Mensah Member ID Guarantor Name 11/14/2024 1 [employer] (MEDICARE REPLACEMENT/A DVANTAGE - HMO) Scott Esposito [id number] Scott Esposito 07/21/2024 1 [employer] (MEDICARE REPLACEMENT/A DVANTAGE - HMO) Scott Esposito [id number] Scott Esposito Notes Date Note Type Note Provider Name and Address Organization Details Recorded Time 03/28/2024 text/html Neck painReporte d bypatient.Onset:date of onset: (2013) Location:bilateral paraspinal; pain is not radiating; PAIN IS RADIATING TO THE SKULL CAUSING HEAD ACHES. 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 Prior Imaging:MRI (01/2020) Previous Cervical Surgery:none Interventional Treatment History:TPI: Previous PT:none Other Conservative Treatment:TENS unit: not effective; PATIENT HAS FAILED CHIROPRATIC CARE ([facility]) THIS MADE CERVICAL PAIN WORSE. Current Analgesics:Oxycodone effective (10/325MG); Reported pain relief- 90% for 5 hours; 03/28/24--LAST DOSE WAS THIS AM Medications History:NSAIDS: (MELOXICAM-NOT HELPFUL.); neuropathics: (GABAPENTIN-NOT HELPFUL. CYMBALTA-NOT HELPFUL.); opioid pain medications: (OXYCODONE-HELPFUL. BUTRANS PATCH-NOT HELPFUL.) Adverse Reactions:no nausea; no vomiting; no constipation; no itching; no respiratory depression; no sexual dysfunction Working:no Prior Pain Management:yes (DR. BRENNAN) For Female Patients:Are you ? No Judy Pabon, [employer] [place], [address], [facility] 03/28/2024 13:26:29 05/25/2024 text/html Neck painReporte d bypatient.Onset:date of onset: (2013) Location:bilateral paraspinal; pain is not radiating; PAIN IS RADIATING TO THE SKULL CAUSING HEAD ACHES. 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 Prior Imaging:MRI (01/2020) Previous Cervical Surgery:none Interventional Treatment History:TPI: Previous PT:none Other Conservative Treatment:TENS unit: not effective; PATIENT HAS FAILED [facility] ([facility] [place]) THIS MADE CERVICAL PAIN WORSE. Current Analgesics:Oxycodone effective (10/325MG); Reported pain relief- 90% for 5 hours; 03/28/24--LAST DOSE WAS THIS AM Medications History:NSAIDS: (MELOXICAM-NOT HELPFUL.); neuropathics: (GABAPENTIN-NOT HELPFUL. CYMBALTA-NOT HELPFUL.); opioid pain medications: (OXYCODONE-HELPFUL. BUTRANS PATCH-NOT HELPFUL.) Adverse Reactions:no nausea; no vomiting; no constipation; no itching; no respiratory depression; no sexual dysfunction Working:no Prior Pain Management:yes (DR. BRENNAN) For Female Patients:Are you ? No Judy Pabon, [facility] [address] [place], [address] 05/25/2024 14:19:13 07/22/2024 text/html Neck painReporte d bypatient.Onset:date of onset: (2013) Location:bilateral paraspinal; midline spine; pain is not radiating Duration:constant Context:overuse Quality:tightness;bur vamsi;aching;stabbing Pain Intensitycurrent pain level: 2/10; worst pain level: 10/10 Alleviating Factors:heat; lying down Aggravating Factors:cannot identify Timing:varies throughout the day Associated Symptoms:no weakness; no numbness; no tingling; no dizziness; no pain in upper extremities; no popping/clicking; no bladder incontinence; no bowel incontinence Functional Assessment/Disability IndexDifficulty 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 Prior Imaging:MRI (01/2020) Previous Cervical Surgery:none Interventional Treatment History:TPI: Previous PT:none Other Conservative Treatment:TENS unit: not effective; PATIENT HAS FAILED CHIROPRATIC CARE ([facility] [place]) THIS MADE CERVICAL PAIN WORSE. Current Analgesics:Oxycodone effective (10/325MG); Reported pain relief- 90% for 5 hours; 07/22/24 Medications History:NSAIDS: (MELOXICAM-NOT HELPFUL.); neuropathics: (GABAPENTIN-NOT HELPFUL. CYMBALTA-NOT HELPFUL.); opioid pain medications: (OXYCODONE-HELPFUL. BUTRANS PATCH-NOT HELPFUL.) Adverse Reactions:no nausea; no vomiting; no constipation; no itching; no respiratory depression; no sexual dysfunction Working:no Prior Pain Management:yes (DR. BRENNAN) For Female Patients:Are you ? No MISA GREENFIELD NP [address] [place] [address], [phone], [facility] 07/22/2024 12:58:26 09/21/2024 text/html Neck painReporte d bypatient.Onset:date of onset: (2013) Location:bilateral paraspinal; midline spine; pain is not radiating Duration:constant Context:overuse Quality:tightness;bur vamsi;aching;stabbing Pain Intensitycurrent pain level: 2/10; worst pain level: 10/10 Alleviating Factors:heat; lying down Aggravating Factors:cannot identify Timing:varies throughout the day Associated Symptoms:no weakness; no numbness; no tingling; no dizziness; no pain in upper extremities; no popping/clicking; no bladder incontinence; no bowel incontinence Functional Assessment/Disability IndexDifficulty 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 Prior Imaging:MRI (01/2020) Previous Cervical Surgery:none Interventional Treatment History:TPI: Previous PT:none Other Conservative Treatment:TENS unit: not effective; PATIENT HAS FAILED CHIROPRATIC CARE ([facility]) THIS MADE CERVICAL PAIN WORSE. Current Analgesics:Oxycodone effective (10/325MG); Reported pain relief- 90% for 5 hours; 09/21/24 Medications History:NSAIDS: (MELOXICAM-NOT HELPFUL.); neuropathics: (GABAPENTIN-NOT HELPFUL. CYMBALTA-NOT HELPFUL.); opioid pain medications: (OXYCODONE-HELPFUL. BUTRANS PATCH-NOT HELPFUL.) Adverse Reactions:no nausea; no vomiting; no constipation; no itching; no respiratory depression; no sexual dysfunction Working:no Prior Pain Management:yes (DR. BRENNAN) For Female Patients:Are you ? No Judy Pabon, TWISTER DOFFER [address] [place], [address] 09/21/2024 13:14:43 11/15/2024 text/html Neck painReporte d bypatient.Onset:date of onset: (2013) Location:bilateral paraspinal; midline spine; pain is not radiating Duration:constant Context:overuse Quality:tightness;bur vamsi;aching;stabbing Pain Intensitycurrent pain level: 2/10; worst pain level: 10/10 Alleviating Factors:heat; lying down Aggravating Factors:cannot identify Timing:varies throughout the day Associated Symptoms:no weakness; no numbness; no tingling; no dizziness; no pain in upper extremities; no popping/clicking; no bladder incontinence; no bowel incontinence Functional Assessment/Disability IndexDifficulty 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 Prior Imaging:MRI (01/2020) Previous Cervical Surgery:none Interventional Treatment History:TPI: Previous PT:none Other Conservative Treatment:TENS unit: not effective; PATIENT HAS FAILED CHIROPRATIC CARE ([facility]) THIS MADE CERVICAL PAIN WORSE. Current Analgesics:Oxycodone effective (10/325MG); Reported pain relief- 90% for 5 hours; 11/15/24 Medications History:NSAIDS: (MELOXICAM-NOT HELPFUL.); neuropathics: (GABAPENTIN-NOT HELPFUL. CYMBALTA-NOT HELPFUL.); opioid pain medications: (OXYCODONE-HELPFUL. BUTRANS PATCH-NOT HELPFUL.) Adverse Reactions:no nausea; no vomiting; no constipation; no itching; no respiratory depression; no sexual dysfunction Working:no Prior Pain Management:yes (DR. BRENNAN) For Female Patients:Are you ? No Judy Pabon, ERIC [address] [place], [address], [facility] 11/15/2024 12:13:15 OBGyn Episode No OBEpisode recorded.
--- OUTSIDE RECORDS SUMMARY | 2025-01-07 14:39 | XMS_ITS | Encounter Summary ---
Author Organization [place] [address] Care Team Providers Care Manager Digital Ad Operations Name Role Phone Elie Warren MD [facility] Eileen Rey MD Primary Care Provider [phone] Encounter Details Date Type Department Care Team (Late st Contact Info) Description 10/25/2024 Results Follow-Up SEP [facility] [address] [place] [id number] Eileen Quevedo MD [address] [place] [address] UPPER EXTREMITY NONVASCULAR LIMITED Social History Tobacco Use Types Packs/Day Years [...] Author No 09/29/2024 1:53 PM EDT Adelaida Calrk RMA * Because of a physical, mental [...] Adelaida Clark RMA documented in this encounter Progress Notes * Eileen Quevedo MD - 10/25/2024 12:52 PM EDT Please inform patient their results were normal. documented in this encounter Plan of Treatment Not on file documented as of this encounter Goals Goal Patient Goal Type Associated Problems Recent Progress Patient-Stated? Author Maintain a healthy diet, exercise regularly and maintain an ideal body weight General No Arti Clarkrenee BatistaTANVI stauffer Stay Tobacco Free Lifestyle No Adelaida Clark RMA documented as of this encounter Visit Diagnoses Not on filedocumented in this encounter Care Teams Manager Digital Ad Operations Relationship Specialty Start Date End Date Eileen Quevedo MD [address] [place] [address] [place] [address] PCP - General Family Medicine 09/02/18 Elie Warren MD 10/17/16 documented as of this encounter
--- OUTSIDE RECORDS SUMMARY | 2025-01-07 14:39 | XMS_ITS | Referral Summary ---
Author Organization [facility] Address [address] [facility] [address] [place] [address] Care Team Providers Care Wood Borer Name Role Phone Real Baltazar MD Primary Care Provider [phone] Allergies No known active allergies Medications traZODone [...] Mass Index 22.31 08/05/2024 2:08 PM EST Functional Status * Are you deaf or do you have serious difficulty hearing? Answer Date of Assessment Author No 08/12/2024 9:21 AM Kareem Davila Registered Nurse * Are you blind or do you have serious difficulty seeing, even when wearing glasses? Answer Date of Assessment Author No 08/12/2024 9:21 AM Kareem Davila Registered Nurse * Do you have serious difficulty walking or climbing stairs? (5 years old or older) Answer Date of Assessment Author No 08/12/2024 9:21 AM Kareem Davila Registered Nurse * Do you have difficulty dressing or bathing? (5 years old or older) Answer Date of Assessment Author No 08/12/2024 9:21 AM Kareem Davila Registered Nurse * Because of a physical, mental, or emotional condition, do you have difficulty doing errands alone such as visiting a doctor???s office or shopping? (15 years old or older) Answer Date of Assessment Author No 08/12/2024 9:21 AM Kareem Davila Registered Nurse Mental Status * Because of a physical, mental, or emotional condition, do you have serious difficulty concentrating, remembering, or making decisions? (5 years old or older) Answer Entry Date Author No 08/12/2024 9:21 AM Kareem Davila, Registered Nurse Plan of Treatment Not on file Medical Devices Implanted Type Area Blending Line Attendant Device Identifier Shelf Expiration Date Model / Serial / Lot Breast Bilateral: Breast Screws Left: Leg Breast Implant Implanted:Qty: 1 on 08/12/2024 by Real Baltazar MD at [facility] Left: Breast ALLERGAN 01/16/2027 REF# [id number] / [id number] / Description: brought impla nt Breast Implant Implanted:Qty: 1 on 08/12/2024 by Real Baltazar MD at [facility] Right: Breast ALLERGAN 05/17/2027 [id number] / [id number] / Description: brought impla nt Explanted Type Area Blending Line Attendant Device Identifier Shelf Expiration Date Model / Serial / Lot Breast Explant Explanted:Qty: 1 on 08/12/2024 at [facility] Left: Breast [email or web address] STYLE 68MP / / [id number] Breast Explant Explanted:Qty: 1 on 08/12/2024 at [facility] Right: Breast [email or web address] STYLE 68MP / / [id number] Care Teams Wood Borer Relationship Specialty Start Date End Date Real Baltazar MD PCP - General Plastic Surgery 08/08/24
--- OUTSIDE RECORDS SUMMARY | 2025-01-07 14:39 | XMS_ITS | Encounter Summary ---
Author Organization [place] [address] Care Team Providers Care Freezer Operator Name Role Phone Elie Warren MD [facility] Gabbie Eileen Quevedo MD Primary Care Provider [phone] Reason for Visit * Reason Onset Date Comments Central Patient Navigator Outreach 11/17/2024 Mammo Encounter Details Date Type Department Care Team (Late Contact Info) Description 11/17/2024 Patient Outreach SEP [facility] [address] [place] [address] Eileen Quevedo MD [address] [place] [address] Central Patient Navigator Outreach (Mammo) Social History Tobacco Use Types Packs/Day Years [...] No 09/29/2024 1:53 PM EDT Adelaida Clark De GuzmanTANVI stauffer * Does this person have serious difficulty walking or climbing stairs? Answer Date of Assessment Author No 09/29/2024 1:53 PM EDT Adelaida Clark RMA * Does this person have difficulty dressing or bathing? Answer Date of Assessment Author No 09/29/2024 1:53 PM EDT Adelaida Clark De GuzmanTANVI stauffer * Because of a physical, mental or [...] Date Author No 09/29/2024 1:53 PM EDT AixanaimaArti burtonrenee Batistae TANVI documented in this encounter Progress Notes * Rosalina Badillo - 11/17/2024 4:08 PM EDT Patient Outreach: Care Gap Outreach Attempt Count: 1st Care Gaps Addressed domestic travel consultant: Mammogram Outcome:Left message to return call at and [facility] Message Sent Call back number: [phone] documented in this encounter Plan of Treatment [...] on filedocumented in this encounter Care Teams Freezer Operator Relationship Specialty Start Date End Date Eileen Quevedo MD [address] [place] [address] [place] [address] PCP - General Family Medicine 09/02/18 Elie Warren MD 10/17/16 documented as of this encounter
--- OUTSIDE RECORDS SUMMARY | 2025-01-07 14:39 | XMS_ITS | Encounter Summary ---
Author Organization [place] [address] Care Team Providers Care Alpine Guide Name Role Phone Elie Warren MD, Ashley N MD Primary Care Provider Encounter Details Date Type Department Care Team (Late st Contact Info) Description 12/08/2024 Results Follow-Up [facility] [address] [place] [id number] Jazmine Raygoza, MACHINE PRECISION ETCHER [address] [place] [address] XR CHEST PA AND LATERAL Social History Tobacco Use Types Packs/Day Years [...] Assessment Author No 09/29/2024 1:53 PM EDT Jettted TANVI Ferguson * Does this person have difficulty dressing or bathing? Answer Date of Assessment Author No 09/29/2024 1:53 PM EDT Amber MabelAdelaidaKRISTEN SolanoBrittany * Because of a physical, mental or emotional condition, does this person have difficulty doing errands alone such as visiting a doctor's office or shopping? Answer Date of Assessment Author No 09/29/2024 1:53 PM EDT Amber Adelaida De Guzman TANVI documented as of this encounter Mental Status * Because of a physical, mental or emotional condition, does this person have serious difficulty concentrating, remembering or making decisions? Answer Entry Date Author No 09/29/2024 1:53 PM EDT Amber Adelaida De Guzman TANVI documented in this encounter Plan of Treatment [...] on filedocumented in this encounter Care Teams Alpine Guide Relationship Specialty Start Date End Date Eileen Quevedo MD [address] [place], [place] [address], [place] [address] PCP - General Family Medicine 09/02/18 Elie Warren MD 10/17/16 documented as of this encounter
--- OUTSIDE RECORDS SUMMARY | 2025-01-07 14:39 | XMS_ITS | Continuity of Care Document ---
Author Organization MER [facility], [place] Address [address] [place] [address] Assessment Encounter Date Assessment Date Assessment LastModified by Organization Details LastModified Time 11/15/2024 11/15/2024 Pain History: Ms. Esposito is [...] for greater than 6 weeks including physical therapy/chiropra ctic care/spinal manipulation, a monitored home exercise program, [...] follow-up in 2 months for medication management. Anticoagulant/An tiplatelet Medications: Denies cl Not available 11/15/2024 12:11:53 Plan of Treatment Reminders Order Date Submit Date Provider Last Modified By Organization Details Last Modified Time Details Appointments FOLLOW UP 15 2024 10:15A M MISA GREENFIELD NP Not available Not available Not available Lab None recorded . Referral None recorded . Procedures None recorded . Surgeries None recorded . Imaging None recorded . Medication Orders oxycodon e-acetam inophen 10 mg-325 mg tablet 2024 025 [facility], [address] [place], [address], 12/06/2024 11:42:58 oxycodon e-acetam inophen 10 mg-325 mg tablet 2024 025 [facility], [address] [facility] [place], [address], 01/03/2025 15:24:11 Patient TargetsNo targets recorded. Patient Instructions Encounter Date Encounter Id Patient Instructions Last Modified By Organization Details Last Modified Time 11/15/2024 [id number] advance directives: care instructions [email or web address] Not available 11/15/2024 12:13:10 depression and chronic disease: care instructions [email or web address] Not available 11/15/2024 12:13:10 A healthy lifestyle: care instructions [email or web address] Not available 11/15/2024 12:13:10 safe use of opioid pain medicine: care instructions [email or web address] Not available 11/15/2024 12:13:10 Learning About Benefits of Quitting Smoking [email or web address] Not available 11/15/2024 12:13:10 Reason for Referral None Reported. Problems Name Problem SNOMED Code Status Onset Date Resolution Date Notes Provider Name and Address Organization Details Recorded Time Idiopathic peripheral neuropathy 68686565 Active 2023 MISA GREENFIELD NP [address] [place], [address] , [facility] - [facility] 4 10:20:30 Chronic pain 55722170 Active 2023 MISA GREENFIELD NP [address] [place], [address] , [facility] - [facility] 4 12:36:25 Cervical spondylosi s 877719140 Active 2021 Kareem Schultz MD [address] [place] [address], [address] , [facility] - [facility] 2 13:08:27 Lumbar spondylosi s 297852792 Active 2021 Kareem Schultz MD [address] [place] [address], [address] , [facility] - [facility] 2 13:08:33 Degenerati on of cervical interverte bral disc 25158969 Active 2021 Kareem Schultz MD [address] [place] [address], [address] , [facility] - [facility] 2 13:15:59 Long-term drug therapy Active 2021 YARY YANG NP [address] [place], [address] , [facility] - [facility] 2 10:56:40 Myofascial pain 184289900 Active 2022 [place] - [facility] 3 10:59:25 Pain disorder with psychologi allison factor 349197572403 Active 2022 MER Villalobos [facility] 3 09:50:52 Problem Notes None recorded. Procedures Surgical History Date Name Laterality Status Provider Name and Address Organization Details Recorded Time 08/13/19 augmentation mammoplasty completed Cristopher Hendrickson [facility] 09/21/2024 10:27:09 Orthopedic Surgery completed Jazmine Ortega [facility] 08/06/2021 12:57:32 Orthopedic Surgery completed Jazmine Ortega [facility] 08/06/2021 12:57:49 Breast augmentation w/implt completed Jazmine Ortega [facility] 08/06/2021 12:57:55 Imaging Results None recorded. [...] Updated DateTime 5 162.56 cm 22.3 kg/m2 01708.0 1 g 96 % 96 % 81 /min 145 mm[Hg] 94 mm[Hg] aubrie ramos [place] - [facility] 5 10:49:21 Social History Question Answer Notes LastModified by Organizat ion Details LastModified Time Tobacco Smoking Status Former Smoker MER [facility] - [facility] 07/22/2024 10:39:43 Do You Have An Advance Directive? No [email or web address] Information n ot available 04/02/2022 In The [...] Type Of Diet Are You Following? REGULAR [email or web address] Information n ot available 08/06/2021 What Is The Highest Grade Or Level Of School You Have Completed Or The Highest Degree You Have Received? [id number] [email or web address] Information not available 01/03/2022 Do You Have A Medical Power Of Medical Laboratory Technologist? No [email or web address] Information not available 07/29/2023 What Was The Date Of Your Most Recent Tobacco Screening? 09/21/2024 [email or web address] Information not available 09/21/2024 What Is Your Relationship Status? [email or web address] Information not available 08/06/2021 How Much Tobacco Do You Smoke? 0.5 PPD [email or web address] Information not available 08/06/2021 How Many Years Have You Smoked Tobacco? 25 Information not available 08/06/2021 Sex: Unknown Functional Status Question Answer Note LastModified by Organizat ion Details LastModified Time Do you use any illicit or recreational drugs? No [email or web address] Information not available 01/03/2022 What is your level of alcohol consumption? None [email or web address] Information not available 08/06/2021 Are you currently employed? No [email or web address] Information not available 01/03/2022 Are you able to walk? YESWOREST [email or web address] Information not available 08/06/2021 What is your exercise level? None [email or web address] Information not available 08/06/2021 Mental Status None recorded. Family History Relationship Description Onset Age of this Age Resolved Age Notes LastModified by Organization Details LastModified Time Father No current problems or disability [email or web address] Not available 10:53:26 Father Heart disease [email or web address] Not available 01/11 10:53:26 Mother No current problems or disability [email or web address] Not available 10:53:26 Medical History Condition Response Bipolar Disease N Coronary Artery Disease N Seizure Disorder N Gout N Atrial Fibrillation N Thyroid Disease N Hernia N Head Trauma/Injury N COPD N Depression Y Anxiety Disorder Y Acid Reflux (GERD) N Cancer N Stroke N Skin Disorder N High Cholesterol N Liver Disease N Rheumatoid Arthritis N Headaches Y Fibromyalgia N Kidney Disease N Autoimmune Disease N Osteoarthritis N Neurosurgery N DVT N Peptic Ulcer Disease N Anemia N Heart Attack (GA) N Diabetes N Cardiomyopathy N Bleeding Disorder [...] SNOMED-CT Code Diagnosis ICD10 Code Diagnosis Note [id number] FELIPE HUGHES MD [place] [address] [place] [address] 11/15/2024 10:37:51 11/15/2024 10:58:05 Lumbar spondylosis 080619978 M47.816 Cervical spondylosis 387 158079 M47.812 We will not make any changes to her current oral medication regimen. The relief she receives allows her to maintain a very active lifestyle and engage in several different hobbies. He does not wish to pursue injection therapy as those performed at outside offices years ago did not offer sustained relief. Chronic pain 62270915 G8 9.29 Long-term drug therapy [id number] Z79.899 Health Concerns Section Related Observation LastModified by Organization Detai ls LastModified Time None Recorded Concern Status LastModified by Organization Details LastModified Time None Recorded Payers Encounter Date Sequence Insurance Name Policy Number Policy Mensah Covered Member ID Mensah Member ID Guarantor Name 11/15/2024 1 [facility] (MEDICARE REPLACEMENT/A DVANTAGE - HMO) Scott Esposito [id number] Scott Esposito Notes Date Note Type Note Provider Name and Address Organization Details Recorded Time 11/15/2024 text/html Neck painReporte d bypatient.Onset:date of [...] no bowel incontinence Functional Assessment/Disability 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 Prior Imaging:MRI (01/2020) Previous Cervical Surgery:none Interventional Treatment History:TPI: Previous PT:none Other Conservative Treatment:TENS unit: not effective; PATIENT HAS FAILED CHIROPRATIC CARE ([facility]) THIS MADE CERVICAL PAIN WORSE. Current Analgesics:Oxycodone effective (10/325MG); Reported pain relief- 90% for 5 hours; 11/15/24 Medications History:NSAIDS: (MELOXICAM-NOT HELPFUL.); neuropathics: (GABAPENTIN-NOT HELPFUL. CYMBALTA-NOT HELPFUL.); opioid pain medications: (OXYCODONE-HELPFUL. BUTRANS PATCH-NOT HELPFUL.) Adverse Reactions:no nausea; no vomiting; no constipation; no itching; no respiratory depression; no sexual dysfunction Working:no Prior Pain Management:yes (DR. BRENNAN) For Female Patients:Are you ? No Judy Pabon, SEMICONDUCTOR PROCESSOR [address] [place], [address], [facility] 11/15/2024 12:13:15 OBGyn Episode No OBEpisode recorded.
--- NOTE | 2025-01-07 16:35 | ED_ITS ---
Discharge Plan Disposition Patient Disposition: Home, Self-Care Referrals Follow up/Referrals: Eileen Quevedo MD [Primary Care Provider, Family Practice] - See instructions Activity Restrictions/Add. Instructions Additional Instructions/Restrictions: Up with the [facility] within 10 to 14 days in order to have repeat imaging, probably be placed in a cast at that point. If you have any other concerning signs or symptoms, return to the emergency department for further evaluation. Do not get splint wet. Be sure not to remove splint either. Do not bear weight on your upper extremity until following up with orthopedics as it can cause the bones to shift Clinical Impressions Clinical Impression: Closed fracture of phalanx of left little finger Print Language Print Language: [place] Discharge ED Provider: Johnny Durbin General Adult HPI General Chief complaint: Extremity Injury, Upper Stated complaint: AO 01/07 L. pinkie/ring finger swelling/bruising Time Seen by Provider: 01/07/25 15:47 Mode of Arrival: Ambulatory Description of Symptoms (Recalled from ER Triage Doc. by RN): c/o left pinky into side hand after a weed eater fell off the shelf hitting her hand. pt reports bruising and swelling with pain. History of Present Illness HPI narrative: Please note that above description of symptoms, in this electronic medical record under categorization of recalled from ER triage doctor by RN are reflective of an initial nursing assessment, however, is not reflective of my full history and physical exam that was personally taken and clarified. Consequentially, this preceding description of symptoms, which may include the patient's categorized chief complaint in the EMR, do not reflect my personal clinical impression, and the ultimate description of history of present illness and patient stated complaints should be deferred to this section of the note. Unless stated otherwise or congruent with this section of the note, additional signs, symptoms, or incongruence should be interpreted as inaccurate with my clinical impression. Related Data Allergies Allergy/AdvReac Type Severity Reaction Status Date / Time No Known Allergies Allergy Verified 01/07/25 14:28 [facility] Disclaimer: The information contained in this section may have been updated after the patient was seen, as this information can be updated by other users. Social History Smoking Status: Former smoker alcohol intake: never current occupational status: retired Travel in the last 8 weeks?: None ROS Obtained: Yes All systems reviewed & no additional complaints except as documented Physical Exam General General appearance: alert Head Head exam: atraumatic and normocephalic Eye Eye exam: Present normal appearance, PERRL and EOMI Neck Neck exam: Present normal inspection, full ROM and trachea midline Respiratory Respiratory exam: Absent respiratory distress, wheezes, stridor, accessory muscle use or prolonged expiratory phase Cardiovascular Cardiovascular exam: Present other (Pulses equal symmetric in upper and lower extremities) Abdominal Exam Abdominal exam: Present soft; Absent distention, tenderness or pulsatile mass Extremities Exam Extremities exam: Present other (swollen proximal phalanx of 5th digit of L hand); Absent edema Neurological Exam Neurological exam: Present alert, oriented X3 and CN II-XII intact; Absent motor sensory deficit Skin Skin exam: Present warm and dry; Absent diaphoresis or erythema Medical Decision Making Medical Records Medical records reviewed: Yes I reviewed the patient's medical records. Screening: Per USPSTF and CDC recommendations, given the prevalence of disease in our region, it is our hospital?s policy to screen for HIV and viral Hepatitis for all patients aged 18 and over and those with ongoing risk factors. [place] Inquiry Pt receiving controlled substance: No [place] was queried for this patient: No Vital Signs: 01/07/25 14:24 Temperature 97.9 F Temperature Source Oral Pulse Rate [Left Radial] 75 Respiratory Rate 18 Blood Pressure [Right Arm] 126/68 Blood Pressure Mean [Right Arm] 87 02 Sat by Pulse Oximetry 99 Oxygen Delivery Method Room Air Orders (Tests/Meds): ORDERS Category Date Time Status Hand XR left 2 views [XR hand LT 2V] Stat Exams 01/07/25 14:28 Completed Medical Decision Narrative: 59-year-old female presenting with left upper extremity injury. She states that she was in the shed, weed Miguel fell off the shelf she tried to catch it and it caused her little finger. Came in for further evaluation. Took Tylenol prior to arrival, it did seem to help. History obtained the patient. No other trauma sustained. On arrival, very clinically well, but in pain holding her left hand. On physical exam, she is neurovascularly intact with flexion and extension of her little finger, but it is swollen, bruised mostly in the proximal phalanx of the left fifth digit. Differential includes fracture, sprain, strain, among ot hers. X-rays obtained. On independent interpretation, she has a spiral fracture through the middle of the phalanx. Nondisplaced, nonangulated and does not appear comminuted. Ulnar gutter placed using plaster splint. Discharged in hemodynamically stable condition with orthopedic follow-up. Privacy Manager disclaimer Much of this encounter note is an electronic medical doctor spoken language to p rinted text. Electronic medical doctor of the spoken language may permit errors. Although I have reviewed the note, some errors may still exist. Procedures Orthopedic Splinting/Casting Injury #1: Side: left Upper Extremity Injury Location: hand Upper Extremity Immobilizer: ulnar gutter Post Cast/Splinting Neuro Status: intact and no change Post Cast/Splinting Vasc Status: intact and no change Critical Care Critical Care Time Critical Care Time: No
[2025-01-07 16:41] VITALS: BP 126/68; PULSE 75; RESP 18; TEMP 36.6; O2SAT 96
== END 2025-01-07 16:41 | disposition home or self-care (01) ==
PROVIDERS: Emergency Provider Emergency Medicine; PCP Student in an Organized Health Care Education/Training Program
DX: S62.647A Nondisplaced fracture of proximal phalanx of left little finger, initial encounter for closed fracture (principal); W20.8XXA Other cause of strike by thrown, projected or falling object, initial encounter
CPT/HCPCS: 29125; 73120; 99283